=== PATIENT | female | born 2000 | race Caucasian/White ===

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

== ENCOUNTER 2020-03-10 00:02 | Emergency (ER) | payer OTHER ==
[2020-03-10 00:14] VITALS: BP 135/82; RESP 18; TEMP 99.2
[2020-03-10] MEDS ORDERED: ONDANSETRON 4 MG ODT STARTER PACK 2 TAB BTL PO STA (00:23)
[2020-03-10] MEDS ORDERED: ACETAMINOPHEN TAB 325 MG TAB PO STA (00:23)
[2020-03-10] MEDS ORDERED: IBUPROFEN 600 MG TAB PO STA (00:23)
[2020-03-10] MEDS ORDERED: LORazepam 1 MG TAB PO STA (00:23)
--- NOTE | 2020-03-10 00:24 | ED ---
Headache HPI - General Chief Complaint: Headache Stated Complaint: Headache Time Seen by Provider: 03/10/20 00:09 Mode of arrival: ambulatory Limitations: no limitations - History of Present Illness Initial Comments: 19-year-old female patient presents to the emergency department today for evaluation of headache and ringing in the right ear. The patient states that she generally gets these symptoms prior to having a seizure. States that she was diagnosed with a seizure disorder and Deirdre of last year and they are unable yet to find a cause. States she is taking Keppra as directed daily. States that symptoms started today after she got into an argument with her [id number] around 5 PM. States she took a nap at her symptoms are still present when she woke. She denies any blurred or double vision. Denies any numbness, tingling, weakness to her extremities. Denies any recent head injury. Denies nausea or vomiting. Patient denies any recent rash, fever, chills, cough, shortness of breath, chest pain, abdominal pain, diarrhea, constipation, back pain, hematuria, dysuria, urinary urgency, urinary frequency, or any other complaints. - Related Data Previous Rx's Medication Instructions Recorded Ondansetron Odt [Zofran Odt] 4 mg PO Q8HR PRN #14 tab 11/27/19 Allergies Allergy/AdvReac Type Severity Reaction Status Date / Time No Known Allergies Allergy Verified 11/27/19 11:18 Review of Systems ROS Statement: Those systems with pertinent positive or pertinent negative responses have been documented in the HPI. ROS Other: All systems not noted in ROS Statement are negative. Past Medical History Past Medical History: Asthma, GERD/Reflux, Pneumonia, Seizure Disorder Additional Past Medical History / Comment(s): "malformation of the skull", RSV, pneumonia as toddler. , Migraines, frequent UTI's, hx of seizure x1 (08/05/19), History of Any Multi-Drug Resistant Organisms: None Reported Past Surgical History: Appendectomy, Orthopedic Surgery Additional Past Surgical History / Comment(s): left foot surgery Past Anesthesia/Blood Transfusion Reactions: No Reported Reaction Past Psychological History: ADD/ADHD, Bipolar, Depression Smoking Status: Current every day smoker Past Alcohol Use History: None Reported Past Drug Use History: Marijuana - Past Family History Mother Family Medical History: No Reported History General Exam Limitations: no limitations General appearance: alert, in no apparent distress, other (Physical well- developed, well-nourished adult female patient in no acute distress. Vital signs upon presentation are temperature 99.2F, pulse 111, respirations 18, blood pressure 135/82, pulse ox 100% on room air.) Eye exam: Present: normal appearance, PERRL, EOMI. Absent: scleral icterus, conjunctival injection, periorbital swelling ENT exam: Present: normal exam, normal oropharynx, mucous membranes moist Respiratory exam: Present: normal lung sounds bilaterally. Absent: respiratory distress, wheezes, rales, rhonchi, stridor Cardiovascular Exam: Present: regular rate, normal rhythm, normal heart sounds. Absent: systolic murmur, diastolic murmur, rubs, gallop, clicks GI/Abdominal exam: Present: soft, normal bowel sounds. Absent: distended, tenderness, guarding, rebound, rigid Neurological exam: Present: alert, oriented X3, CN II-XII intact Expanded Speech: Present: fluid speech Motor strength exam: RUE: 5, LUE: 5, RLE: 5, LLE: 5 Psychiatric exam: Present: normal affect, normal mood Skin exam: Present: warm, dry, intact, normal color. Absent: rash Course Vital Signs 03/10/20 03/10/20 00:10 00:44 Temperature 99.2 F Pulse Rate 111 H 96 Respiratory 18 18 Rate Blood Pressure 135/82 O2 Sat by Pulse 100 100 Oximetry Medical Decision Making - Medical Decision Making 19-year-old female patient presented to the emergency department today reporting headache and ringing in the right ear. States he symptoms usually preceded her having a seizure. Physical examination is unremarkable. She is neurologically intact with no focal deficits. Patient does admit to being very stressed out today due to an argument with her [id number]. Vital signs within normal ranges. We did discuss receiving oral medications including Ativan and Zofran to help her symptoms. She agreed to this strategy. She'll be discharged to follow-up with her primary care physician and neurologist. Return parameters were discussed in detail. She verbalizes understanding and agrees with this plan. Disposition Clinical Impression: Headache, Acute stress reaction Disposition: HOME SELF-CARE Condition: Good Instructions (If sedation given, give patient instructions): Stress (ED), Acute Headache (ED) Additional Instructions: Follow-up through primary care physician and neurologist for further evaluation as soon as possible. Return to the emergency department immediately for any new, worsening, or concerning symptoms. Is patient prescribed a controlled substance at d/c from ED?: No Referrals: Kyrie Salter MD [Primary Care Provider] - 1-2 days Time of Disposition: 00:24
[2020-03-10 00:45] VITALS: PULSE 96
== END 2020-03-10 00:48 | disposition home or self-care (01) ==
LOC: EC 00:02
DX: F43.0 Acute stress reaction (principal); H93.11 Tinnitus, right ear; F17.200 Nicotine dependence, unspecified, uncomplicated; Z90.49 Acquired absence of other specified parts of digestive tract
CPT/HCPCS: 99283; S0119

== ENCOUNTER 2020-03-12 23:50 | Emergency (ER) | payer OTHER ==
[2020-03-13] MEDS ORDERED: ONDANSETRON 4 MG ODT STARTER PACK 2 TAB BTL PO STA (00:09)
[2020-03-13] MEDS ORDERED: ACET/COD 300 MG/30 MG STARTER PACK 6 TAB BTL PO STA (00:09)
--- NOTE | 2020-03-13 00:15 | ED ---
General Adult HPI - General Chief complaint: Urogenital Stated complaint: Lower Back Pain Time Seen by Provider: 03/13/20 00:02 Source: patient Mode of arrival: ambulatory Limitations: no limitations - History of Present Illness Initial comments: 19 year-old female patient presents to the emergency department for evaluation of right flank pain and nausea. Patient states she has had these symptoms throughout the day today. She states symptoms are similar to when she has had UTI in the past. States that she has asymptomatic bladder infections so her fi rst symptom is generally flank pain. She states she did have a 99F temperature today. Denies any vomiting. Is able to eat and drink without difficulty. Denies chance of . Patient denies any recent rash, cough, shortness of breath, chest pain, diarrhea, constipation, back pain, numbness, tingling, dizziness, weakness, headache, visual changes, or any other complaints. - Related Data Previous Rx's Medication Instructions Recorded Ondansetron Odt [Zofran Odt] 4 mg PO Q8HR PRN #14 tab 11/27/19 Allergies Allergy/AdvReac Type Severity Reaction Status Date / Time No Known Allergies Allergy Verified 11/27/19 11:18 Review of Systems ROS Statement: Those systems with pertinent positive or pertinent negative responses have been documented in the HPI. ROS Other: All systems not noted in ROS Statement are negative. Past Medical History Past Medical History: Asthma, GERD/Reflux, Pneumonia, Seizure Disorder Additional Past Medical History / Comment(s): "malformation of the skull", RSV, pneumonia as toddler. , Migraines, frequent UTI's, hx of seizure x1 (08/05/19), History of Any Multi-Drug Resistant Organisms: None Reported Past Surgical History: Appendectomy, Orthopedic Surgery Additional Past Surgical History / Comment(s): left foot surgery Past Anesthesia/Blood Transfusion Reactions: No Reported Reaction Past Psychological History: ADD/ADHD, Bipolar, Depression Smoking Status: Current every day smoker Past Alcohol Use History: None Reported Past Drug Use History: Marijuana - Past Family History Mother Family Medical History: No Reported History General Exam Limitations: no limitations General appearance: alert, in no apparent distress, other (This is a well- developed, well-nourished adult female patient in no acute distress. Vital signs upon presentation are temperature 98.3F, pulse 84, respirations 16, blood pressure 111/81, pulse ox 97% on room air.) Eye exam: Present: normal appearance, PERRL, EOMI. Absent: scleral icterus, conjunctival injection, periorbital swelling ENT exam: Present: normal exam, normal oropharynx, mucous membranes moist Respiratory exam: Present: normal lung sounds bilaterally. Absent: respiratory distress, wheezes, rales, rhonchi, stridor Cardiovascular Exam: Present: regular rate, normal rhythm, normal heart sounds. Absent: systolic murmur, diastolic murmur, rubs, gallop, clicks GI/Abdominal exam: Present: soft, normal bowel sounds. Absent: distended, tenderness, guarding, rebound, rigid Back exam: Present: normal inspection, CVA tenderness (R). Absent: CVA tenderness (L) Neurological exam: Present: alert, oriented X3, CN II-XII intact Psychiatric exam: Present: normal affect, normal mood Skin exam: Present: warm, dry, intact, normal color. Absent: rash Course Vital Signs 03/12/20 23:53 Temperature 98.3 F Pulse Rate 84 Respiratory 16 Rate Blood Pressure 111/81 O2 Sat by Pulse 97 Oximetry Medical Decision Making - Medical Decision Making 19-year-old female patient presents to the emergency department today concerned for possible urinary tract infection. Patient is reporting right flank pain and pressure as well as mild nausea. Physical examination did reveal right CVA tenderness. No abdominal tenderness. Urinalysis was obtained and did show small amount of blood but no elevation and red blood cells, negative for signs of infection. She is afebrile normal vital signs. Upon reevaluation she is resting comfortably in bed. I did offer to perform further testing including labs and computed tomography scan for possible kidney stone or other etiologies. Patient would like to wait and follow up with her primary care physician. She is instructed to follow-up for recheck tomorrow if possible. Return parameters were discussed in detail. She verbalizes understanding and agrees with this plan. - Lab Data Lab Results 03/13/20 03/13/20 Range/Units 00:20 00:20 Urine Color Yellow Urine Appearance Clear (Clear) Urine pH 8.0 (5.0-8.0) Ur Specific [place] 1.022 (1.001-1.035) Urine Protein Negative (Negative) Urine Glucose (UA) Negative (Negative) Urine Ketones Negative (Negative) Urine Blood Small H (Negative) Urine Nitrite Negative (Negative) Urine Bilirubin Negative (Negative) Urine Urobilinogen <2.0 (<2.0) mg/dL Ur Leukocyte Esterase Negative (Negative) Urine RBC <1 (0-5) /hpf Ur Squamous Epith Cells <1 (0-4) /hpf Urine HCG, Qual Not Detected (Not Detectd) Disposition Clinical Impression: Right flank pain Disposition: HOME SELF-CARE Condition: Good Instructions (If sedation given, give patient instructions): Flank Pain (ED) Additional Instructions: Follow-up through primary care physician for recheck in 1-2 days. Return to the emergency department for any new, worsening, or concerning symptoms. Is patient prescribed a controlled substance at d/c from ED?: No Referrals: Kyrie Salter MD [Primary Care Provider] - 1-2 days Time of Disposition: 00:54
[2020-03-13 00:40] LABS: Appearance,Urine Clear (Clear); Bilirubin,Urine Negative (Negative); Blood,Urine Small (Negative); Color,Urine Yellow; Glucose,Urine (UA) Negative (Negative); Ketones,Urine Negative (Negative); Leukocyte Esterase,Urine Negative (Negative); Nitrite,Urine Negative (Negative); Protein,Urine Negative (Negative); RBC,Urine <1 /hpf (0-5); Specific Gravity,Urine 1.022 (1.001-1.035); Squamous Epithelial Cell,Urine <1 /hpf (0-4); Urobilinogen,Urine <2.0 mg/dL (<2.0)
[2020-03-13 01:11] VITALS: BP 116/87; PULSE 79; RESP 18; TEMP 97.9
== END 2020-03-13 01:08 | disposition home or self-care (01) ==
LOC: EC 23:50
DX: R10.9 Unspecified abdominal pain (principal); R11.0 Nausea; F17.200 Nicotine dependence, unspecified, uncomplicated; Z90.89 Acquired absence of other organs; Z87.440 Personal history of urinary (tract) infections
CPT/HCPCS: 81001; 81025; 99283; S0119

== ENCOUNTER 2020-06-09 07:00 | Emergency (ER) | payer BC, OTHER ==
[2020-06-09 07:11] VITALS: BP 123/78; PULSE 95; RESP 18; TEMP 97.5
[2020-06-09] MEDS ORDERED: SODIUM CHLORIDE 0.9% 2,000 ML IV STA (07:36)
[2020-06-09] MEDS ORDERED: METOCLOPRAMIDE 5 MG/ML 2 ML VIAL IVP STA (07:36)
[2020-06-09] MEDS ORDERED: diphenhydrAMINE 50 MG/ML 1 ML VIAL IVP STA (07:36)
--- NOTE | 2020-06-09 07:50 | ED ---
General Adult HPI - General Chief complaint: Nausea/Vomiting/Diarrhea Stated complaint: Vomiting Time Seen by Provider: 06/09/20 07:31 Source: patient, RN notes reviewed Mode of arrival: ambulatory Limitations: no limitations - History of Present Illness Initial comments: 19-year-old female presents to the emergency room for nausea and vomiting. Patient is currently 6 weeks . Patient states that over the past several days she has been nauseous and not able to keep much down. She is concerned she is dehydrated. Patient denies abdominal pain or vaginal bleeding. Patient does have an upcoming appointment with OBGYN scheduled. Patient has no other complaints at this time including shortness of breath, chest pain, abdominal pain, headache, or visual changes. - Related Data Home Medications Medication Instructions Recorded Confirmed Pnv,Calcium 72/Iron/Folic Acid 1 tab PO DAILY 06/09/20 06/09/20 [ Plus Tablet] Previous Rx's Medication Instructions Recorded Doxylamine/Pyridoxine HCl (B6) 2 each PO HS #30 tablet. 06/09/20 [Nasima Ortega 10-10 mg Tablet] Allergies Allergy/AdvReac Type Severity Reaction Status Date / Time No Known Allergies Allergy Verified 06/09/20 08:14 Review of Systems ROS Statement: Those systems with pertinent positive or pertinent negative responses have been documented in the HPI. ROS Other: All systems not noted in ROS Statement are negative. Past Medical History Past Medical History: Asthma, GERD/Reflux, Pneumonia, Seizure Disorder Additional Past Medical History / Comment(s): "malformation of the skull", RSV, pneumonia as toddler. , Migraines, frequent UTI's, hx of seizure x1 (08/05/19), History of Any Multi-Drug Resistant Organisms: None Reported Past Surgical History: Appendectomy, Orthopedic Surgery Additional Past Surgical History / Comment(s): left foot surgery Past Anesthesia/Blood Transfusion Reactions: No Reported Reaction Past Psychological History: ADD/ADHD, Bipolar, Depression Smoking Status: Current every day smoker Past Alcohol Use History: None Reported Past Drug Use History: Marijuana - Past Family History Mother Family Medical History: No Reported History General Exam Limitations: no limitations General appearance: alert, in no apparent distress Head exam: Present: atraumatic, normocephalic, normal inspection Eye exam: Present: normal appearance, PERRL, EOMI. Absent: scleral icterus, conjunctival injection, periorbital swelling ENT exam: Present: normal exam, mucous membranes moist Neck exam: Present: normal inspection. Absent: tenderness, meningismus, lymphadenopathy Respiratory exam: Present: normal lung sounds bilaterally. Absent: respiratory distress, wheezes, rales, rhonchi, stridor Cardiovascular Exam: Present: regular rate, normal rhythm, normal heart sounds. Absent: systolic murmur, diastolic murmur, rubs, gallop, clicks GI/Abdominal exam: Present: soft, normal bowel sounds. Absent: distended, tenderness, guarding, rebound, rigid Neurological exam: Present: alert Course Vital Signs 06/09/20 07:08 Temperature 97.5 F L Pulse Rate 95 Respiratory 18 Rate Blood Pressure 123/78 O2 Sat by Pulse 100 Oximetry Medical Decision Making - Medical Decision Making Vitals are stable. Patient is well-appearing. CBC CMP unremarkable. As unremarkable. HCG is detected. Patient was given 2 L of fluids and antiemetics. Feels much better at this time. We will start patient on Diclegis. She'll return here for any worsening symptoms. - Lab Data Result diagrams: 06/09/20 07:57 06/09/20 07:57 Lab Results 06/09/20 06/09/20 06/09/20 Range/Units 07:48 07:48 07:57 WBC 8.4 (4.0-11.0) k/uL RBC 4.65 (3.80-5.40) m/uL Hgb 14.9 (11.4-16.0) gm/dL Hct 45.5 (34.0-46.0) % MCV 97.8 (80.0-100.0) fL MCH 32.0 (25.0-35.0) pg MCHC 32.7 (31.0-37.0) g/dL RDW 12.7 (11.5-15.5) % Plt Count 270 (150-450) k/uL MPV 7.7 Neutrophils % 76 % Lymphocytes % 20 % Monocytes % 3 % Eosinophils % 1 % Basophils % 0 % Neutrophils # 6.4 (1.3-7.7) k/uL Lymphocytes # 1.7 (1.0-4.8) k/uL Monocytes # 0.2 (0-1.0) k/uL Eosinophils # 0.1 (0-0.7) k/uL Basophils # 0.0 (0-0.2) k/uL Sodium (137-145) mmol/L Potassium (3.5-5.1) mmol/L Chloride (98-107) mmol/L Carbon Dioxide (22-30) mmol/L Anion Gap mmol/L BUN (7-17) mg/dL Creatinine (0.52-1.04) mg/dL Est GFR (CKD-EPI)AfAm (>60 ml/min/1.73 sqM) Est GFR (CKD-EPI)NonAf (>60 ml/min/1.73 sqM) Glucose (74-99) mg/dL Calcium (8.4-10.2) mg/dL Total Bilirubin (0.2-1.3) mg/dL AST (14-36) U/L ALT (4-34) U/L Alkaline Phosphatase (38-126) U/L Total Protein (6.3-8.2) g/dL Albumin (3.5-5.0) g/dL Lipase (23-300) U/L Urine Color Yellow Urine Appearance Clear (Clear) Urine pH 6.5 (5.0-8.0) Ur Specific [place] 1.032 (1.001-1.035) Urine Protein Trace H (Negative) Urine Glucose (UA) Negative (Negative) Urine Ketones Negative (Negative) Urine Blood Negative (Negative) Urine Nitrite Negative (Negative) Urine Bilirubin Negative (Negative) Urine Urobilinogen 2.0 (<2.0) mg/dL Ur Leukocyte Esterase Negative (Negative) Urine HCG, Qual Detected (Not Detectd) 06/09/20 Range/Units 07:57 WBC (4.0-11.0) k/uL RBC (3.80-5.40) m/uL Hgb (11.4-16.0) gm/dL Hct (34.0-46.0) % MCV (80.0-100.0) fL MCH (25.0-35.0) pg MCHC (31.0-37.0) g/dL RDW (11.5-15.5) % Plt Count (150-450) k/uL MPV Neutrophils % % Lymphocytes % % Monocytes % % Eosinophils % % Basophils % % Neutrophils # (1.3-7.7) k/uL Lymphocytes # (1.0-4.8) k/uL Monocytes # (0-1.0) k/uL Eosinophils # (0-0.7) k/uL Basophils # (0-0.2) k/uL Sodium 137 (137-145) mmol/L Potassium 3.9 (3.5-5.1) mmol/L Chloride 105 (98-107) mmol/L Carbon Dioxide 26 (22-30) mmol/L Anion Gap 6 mmol/L BUN 10 (7-17) mg/dL Creatinine 0.70 (0.52-1.04) mg/dL Est GFR (CKD-EPI)AfAm >90 (>60 ml/min/1.73 sqM) Est GFR (CKD-EPI)NonAf >90 (>60 ml/min/1.73 sqM) Glucose 90 (74-99) mg/dL Calcium 9.0 (8.4-10.2) mg/dL Total Bilirubin 1.0 (0.2-1.3) mg/dL AST 18 (14-36) U/L ALT 13 (4-34) U/L Alkaline Phosphatase 71 (38-126) U/L Total Protein 6.7 (6.3-8.2) g/dL Albumin 4.0 (3.5-5.0) g/dL Lipase 60 (23-300) U/L Urine Color Urine Appearance (Clear) Urine pH (5.0-8.0) Ur Specific [place] (1.001-1.035) Urine Protein (Negative) Urine Glucose (UA) (Negative) Urine Ketones (Negative) Urine Blood (Negative) Urine Nitrite (Negative) Urine Bilirubin (Negative) Urine Urobilinogen (<2.0) mg/dL Ur Leukocyte Esterase (Negative) Urine HCG, Qual (Not Detectd) Disposition Clinical Impression: Nausea/vomiting in Disposition: HOME SELF-CARE Condition: Good Instructions (If sedation given, give patient instructions): Nausea and Vomiting in (ED) Additional Instructions: Please take medication as directed. Please follow-up with primary care and [facility]. Return to the emergency room for any worsening symptoms. Prescriptions: Doxylamine/Pyridoxine HCl (B6) [Nasima Ortega 10-10 mg Tablet] 2 each PO HS #30 tablet.dr Is patient prescribed a controlled substance at d/c from ED?: No Referrals: Kyrie Salter MD [Primary Care Provider] - 1-2 days Time of Disposition: 08:49
[2020-06-09 08:11] LABS: Basophils % (A) 0 %; Eosinophils # (A) 0.1 k/uL (0-0.7); Eosinophils % (A) 1 %; HCT 45.5 % (34.0-46.0); HGB 14.9 gm/dL (11.4-16.0); Lymphocytes # (A) 1.7 k/uL (1.0-4.8); Lymphocytes % (A) 20 %; MCHC 32.7 g/dL (31.0-37.0); MCV 97.8 fL (80.0-100.0); Mean Platelet Volume 7.7; Monocytes # (A) 0.2 k/uL (0-1.0); Monocytes % (A) 3 %; Neutrophils # (A) 6.4 k/uL (1.3-7.7); Neutrophils % (A) 76 %; Platelet Count 270 k/uL (150-450); RBC 4.65 m/uL (3.80-5.40); RDW 12.7 % (11.5-15.5); WBC 8.4 k/uL (4.0-11.0)
[2020-06-09 08:15] LABS: Appearance,Urine Clear (Clear); Bilirubin,Urine Negative (Negative); Blood,Urine Negative (Negative); Color,Urine Yellow; Glucose,Urine (UA) Negative (Negative); Ketones,Urine Negative (Negative); Leukocyte Esterase,Urine Negative (Negative); Nitrite,Urine Negative (Negative); PH, Urine 6.5 (5.0-8.0); Protein,Urine Trace (Negative); Specific Gravity,Urine 1.032 (1.001-1.035)
[2020-06-09 08:29] LABS: ALT 13 U/L (4-34); AST 18 U/L (14-36); African American GFR (CKD) >90 (>60 ml/min/1.73 sqM); Alkaline Phosphatase 71 U/L (38-126); Anion Gap 6 mmol/L; Blood Urea Nitrogen 10 mg/dL (7-17); Carbon Dioxide 26 mmol/L (22-30); Chloride 105 mmol/L (98-107); Glucose 90 mg/dL (74-99); Lipase 60 U/L (23-300); Non-African American GFR(CKD) >90 (>60 ml/min/1.73 sqM); Potassium 3.9 mmol/L (3.5-5.1); Sodium 137 mmol/L (137-145); Total Protein 6.7 g/dL (6.3-8.2)
== END 2020-06-09 09:38 | disposition home or self-care (01) ==
LOC: EC 07:00
DX: O21.9 Vomiting of pregnancy, unspecified (principal); O99.511 Diseases of the respiratory system complicating pregnancy, first trimester; J45.909 Unspecified asthma, uncomplicated; O99.331 Smoking (tobacco) complicating pregnancy, first trimester; F17.200 Nicotine dependence, unspecified, uncomplicated; Z3A.01 Less than 8 weeks gestation of pregnancy
CPT/HCPCS: 36415; 80053; 83690; 85025; 81003; 81025; 99284; 96374; 96375; J1200; J2765

== ENCOUNTER 2020-11-15 00:36 | Emergency (ER) | payer BC, OTHER ==
[2020-11-15] MEDS ORDERED: LIDOCAINE 1% INJ 10MG/ML (20 ML MDV) SQ ONE (02:05)
--- NOTE | 2020-11-15 02:43 | ED ---
Wound/Laceration HPI - General Chief Complaint: Wound/Laceration Stated Complaint: Finger Laceration Time Seen by Provider: 11/15/20 01:55 Source: patient Mode of arrival: ambulatory Limitations: no limitations - History of Present Illness Initial Comments: 20-year-old female presents emergency Department with the chief complaint laceration. Status occurred about one hour prior to arrival. Patient reports she accidentally lacerated the palmar aspect of the left second digit. She reports some bleeding which is hence mostly resolved. However, she states the knife was not clean. States her tetanus is up-to-date. Denies any numbness or tingling. Denies any weakness to the rest of the finger. - Related Data Home Medications Medication Instructions Recorded Confirmed Pnv,Calcium 72/Iron/Folic Acid 1 tab PO DAILY 06/09/20 06/09/20 [ Plus Tablet] Previous Rx's Medication Instructions Recorded Doxylamine/Pyridoxine HCl (B6) 2 each PO HS #30 tablet. 06/09/20 [Nasima Ortega 10-10 mg Tablet] Cephalexin [Keflex] 500 mg PO TID #21 cap 11/15/20 Allergies Allergy/AdvReac Type Severity Reaction Status Date / Time No Known Allergies Allergy Verified 11/15/20 01:39 Review of Systems ROS Statement: Those systems with pertinent positive or pertinent negative responses have been documented in the HPI. ROS Other: All systems not noted in ROS Statement are negative. Past Medical History Past Medical History: Asthma, GERD/Reflux, Pneumonia, Seizure Disorder Additional Past Medical History / Comment(s): "malformation of the skull", RSV, pneumonia as toddler. , Migraines, frequent UTI's, hx of seizure x1 (08/05/19), History of Any Multi-Drug Resistant Organisms: None Reported Past Surgical History: Appendectomy, Orthopedic Surgery Additional Past Surgical History / Comment(s): left foot surgery Past Anesthesia/Blood Transfusion Reactions: No Reported Reaction Past Psychological History: ADD/ADHD, Bipolar, Depression Smoking Status: Current every day smoker Past Alcohol Use History: None Reported Past Drug Use History: Marijuana - Past Family History Mother Family Medical History: No Reported History General Exam Limitations: no limitations General appearance: alert, in no apparent distress Head exam: Present: atraumatic, normocephalic, normal inspection Eye exam: Present: normal appearance, PERRL, EOMI Pupils: Present: normal accommodation ENT exam: Present: normal exam, normal oropharynx, mucous membranes moist Neck exam: Present: normal inspection, full ROM. Absent: tenderness Respiratory exam: Present: normal lung sounds bilaterally. Absent: respiratory distress Cardiovascular Exam: Present: regular rate, normal rhythm, normal heart sounds. Absent: systolic murmur Extremities exam: Present: full ROM, tenderness (Mild tenderness at the lace ration site), normal capillary refill, other (Palpable ulnar and radial pulses bilateral. Sensation intact in the left hand). Absent: normal inspection (Flap-like 2 cm laceration to the palmar aspect of the left second digit), pedal edema, joint swelling, calf tenderness Back exam: Present: normal inspection, full ROM. Absent: tenderness Neurological exam: Present: alert, oriented X3 Psychiatric exam: Present: normal affect, normal mood Skin exam: Present: warm, dry, intact, normal color Course Vital Signs 11/15/20 11/15/20 01:37 03:23 Temperature 98.1 F 98.3 F Pulse Rate 62 74 Respiratory 20 18 Rate Blood Pressure 114/67 115/70 O2 Sat by Pulse 100 100 Oximetry Procedures - Laceration Laceration #1 Consent Obtained: verbal consent Indication: laceration Site: hand Size (cm): 2 Description: flap, clean Depth: simple, single layer Sedation/Analgesia: none Anesthetic Used: lidocaine 1% Anesthesia Technique: local infiltration Amount (mls): 3 Pre-repair: irrigated extensively, deep structures intact Type of Sutures: nylon Size of Sutures: 4-0 Number of Sutures: 3 Technique: simple, interrupted Patient Tolerated Procedure: well, no complications Medical Decision Making - Medical Decision Making 20-year-old female presents emergency Department with a chief complaint laceration. On Physical examination, she has a laceration the palmar aspect of the left second digit. Laceration site was thoroughly irrigated and repaired with 3 sutures. Patient started procedure well. Her tetanus is already up-to- date. However, considering this was a dirty knife, I will send the patient home prophylactically with Keflex. Return parameters were thoroughly discussed the patient's attending agreeable. Disposition Clinical Impression: Laceration Disposition: HOME SELF-CARE Condition: Stable Instructions (If sedation given, give patient instructions): Care For Your Stitches (DC), Laceration (DC) Additional Instructions: Please return to the emergency room in 8-10 days to have sutures removed. Please watch for any signs of infection which may include increased pain, swelling, redness, fever or chills. Please return to emergency room for any signs of infection do occur. Please use clean soap and water over the area to prevent scabbing over your stitches. Please leave wound covered for the first 24-48 hours and then leave wound open to air. Please return to the emergency room for any other concerns. Prescriptions: Cephalexin [Keflex] 500 mg PO TID #21 cap Is patient prescribed a controlled substance at d/c from ED?: No Referrals: Kyrie Salter MD [Primary Care Provider] - 1-2 days Time of Disposition: 02:43
[2020-11-15 05:16] VITALS: BP 115/70; PULSE 74; RESP 18; TEMP 98.3
== END 2020-11-15 03:23 | disposition home or self-care (01) ==
LOC: EC 00:36
DX: S61.412A Laceration without foreign body of left hand, initial encounter (principal); J45.909 Unspecified asthma, uncomplicated; K21.9 Gastro-esophageal reflux disease without esophagitis; G40.909 Epilepsy, unspecified, not intractable, without status epilepticus; G43.909 Migraine, unspecified, not intractable, without status migrainosus; F31.9 Bipolar disorder, unspecified; F90.9 Attention-deficit hyperactivity disorder, unspecified type; F17.200 Nicotine dependence, unspecified, uncomplicated; F12.90 Cannabis use, unspecified, uncomplicated; W26.0XXA Contact with knife, initial encounter
CPT/HCPCS: 99282; 12001; J2001

== ENCOUNTER 2020-11-20 15:15 | Outpatient (CLI) | payer OTHER ==
[2020-11-20 15:38] VITALS: BP 127/80; PULSE 92; RESP 16; TEMP 97
[2020-11-20] MEDS ORDERED: SODIUM CHLORIDE 0.9% 1,000 ML IV ONE (15:54)
[2020-11-20 16:05] LABS: Amorphous Sediment,Urine Few /hpf; Appearance,Urine Cloudy (Clear); Bacteria,Urine Occasional /hpf; Bilirubin,Urine Negative (Negative); Blood,Urine Negative (Negative); Color,Urine Yellow; Glucose,Urine (UA) Negative (Negative); Ketones,Urine 3+ (Negative); Leukocyte Esterase,Urine Small (Negative); Mucus,Urine Occasional /hpf; Nitrite,Urine Negative (Negative); Protein,Urine Trace (Negative); RBC,Urine 1 /hpf (0-5); Squamous Epithelial Cell,Urine 12 /hpf (0-4); Urobilinogen,Urine <2.0 mg/dL (<2.0); WBC,Urine 6 /hpf (0-5)
[2020-11-20 16:25] LABS: Basophils % (A) 0 %; Eosinophils # (A) 0.1 k/uL (0-0.7); Eosinophils % (A) 1 %; HCT 40.8 % (34.0-46.0); HGB 15.1 gm/dL (11.4-16.0); Hyperchromasia Slight; Lymphocytes # (A) 1.3 k/uL (1.0-4.8); Lymphocytes % (A) 16 %; MCH 35.4 pg (25.0-35.0); MCHC 37.1 g/dL (31.0-37.0); MCV 95.3 fL (80.0-100.0); Mean Platelet Volume 8.7; Monocytes # (A) 0.1 k/uL (0-1.0); Monocytes % (A) 2 %; Neutrophils # (A) 6.8 k/uL (1.3-7.7); Neutrophils % (A) 81 %; Platelet Count 250 k/uL (150-450); RBC 4.28 m/uL (3.80-5.40); RDW 12.3 % (11.5-15.5); WBC 8.5 k/uL (4.0-11.0)
[2020-11-20] MEDS ORDERED: ONDANSETRON 4 MG/2 ML VIAL IVP STA (16:35)
--- NOTE | 2020-12-15 07:54 | P.MSEPDOC ---
Presenting Problems - Arrival Data Date of Arrival on Unit: 11/20/20 Time of Arrival on Unit: 15:15 Mode of Transport: Ambulatory - Complaint OB-Reason for Admission/Chief Complaint: Acute Nausea/Vomiting, Pain Comment: patient presents to triage with NVD starting on monday and states she has R side abd pain that started night rating 4/10 pain score Medical History - Information : 1 Para: 0 Term: 0 : 0 Abortions: Spontaneous or Elective: 0 Number of Living Children: 0 - Gestational Age Gestational Age by SALVATORE (wks/days): 29 Weeks and 1 Days Review of Systems - Review of Systems Constitutional: No problems Breast: No problems ENT: No problems Cardiovascular: No problems Respiratory: No problems Gastrointestinal: No problems Genitourinary: No problems Musculoskeletal: No problems Neurological: No problems Skin: No problems Vital Signs - Temperature Temperature: 97.0 F Temperature Source: Temporal Artery Scan - Pulse Pulse Oximetery Pulse Rate: 92 Pulse Assessment Method: Pulse Oximetry - Respirations Respiratory Rate: 16 Oxygen Delivery Method: Room Air O2 Sat by Pulse Oximetry: 100 - Blood Pressure Right Arm Blood Pressure: 127/80 Blood Pressure Mean: 95 Blood Pressure Source: Automatic Cuff Medical Screen Scoring - Assessment - Baby A Baseline FHR: 150 Heart Rate - NICHD Category: Category I (Normal) NST: Reactive Physician Notification - Physician Notified Physician Notified Date: 11/20/20 Physician Notified Time: 16:35 Physician: Carolynn Marrufo New Order Received: Yes - Notification Comment Comment: Dr notified of NVD and R side abd pain. new orders for CBC, U/A and covid swab. hydrate patient with bolus of 1L of 0.[address] back with results. called dr with lab results and patient status after bolus with one episode of vomiting small amount of clear fluid. new order for 4mg of zofran and patient to be off work until monday and call office to f/u on monday. Maternal Triage Index - Non-Urgent/Priority 4 Non-Urgent Priority 4: Yes Criteria Met for Priority 4: NVD since monday. Disposition - Disposition OB Disposition: Discharge to home Discharge Date: 11/20/20 Discharge Time: 16:55 I agree with the RN Medical Screening Exam: Yes Case reviewed; plan agreed upon as documented in EMR&OBIX.: Yes Diagnosis: nausea and vomitting
== END 2020-11-20 16:55 ==
LOC: FBPOP 15:15
PROVIDERS: ATTEND Obstetrics & Gynecology
DX: O21.2 Late vomiting of pregnancy (principal); O99.333 Smoking (tobacco) complicating pregnancy, third trimester; F17.200 Nicotine dependence, unspecified, uncomplicated; Z3A.29 29 weeks gestation of pregnancy
CPT/HCPCS: 59025; 96361; 96374; 85025; 81001; 87635; G0463; J2405; 99214

== ENCOUNTER 2020-12-09 15:30 | Emergency (ER) | payer OTHER ==
[2020-12-09 15:52] VITALS: BP 110/71; PULSE 82; RESP 19; TEMP 98
[2020-12-09] MEDS ORDERED: SODIUM CHLORIDE 0.9% 1,000 ML IV ONE (16:10)
--- NOTE | 2020-12-09 16:16 | ED ---
General Adult HPI - General Chief complaint: Nausea/Vomiting/Diarrhea Stated complaint: Possible dehydration,31 Wks preg Time Seen by Provider: 12/09/20 16:00 Source: patient, RN notes reviewed Mode of arrival: ambulatory Limitations: no limitations - History of Present Illness Initial comments: 20-year-old female, , presents to the emergency Department with complaints of nausea, onset yesterday (Monday) evening. Patient reports poor oral intake today, and a couple episodes of frothy emesis. Patient states she is 32 weeks and saw her OB on Monday at which time she was feeling fine. States she did contact her provider this morning who suggested she come to the ER for IV hydration. Patient denies fever, chills, chest pain, cough, shortness of breath, abdominal pain, cramping, vaginal bleeding, discharge, or leaking of fluids, constipation, diarrhea, dysuria, and hematuria. - Related Data Home Medications Medication Instructions Recorded Confirmed Pnv,Calcium 72/Iron/Folic Acid 1 tab PO HS 06/09/20 12/09/20 [ Plus Tablet] Allergies Allergy/AdvReac Type Severity Reaction Status Date / Time No Known Allergies Allergy Verified 12/09/20 18:00 Review of Systems ROS Statement: Those systems with pertinent positive or pertinent negative responses have been documented in the HPI. ROS Other: All systems not noted in ROS Statement are negative. Past Medical History Past Medical History: Asthma, GERD/Reflux, Pneumonia, Seizure Disorder Additional Past Medical History / Comment(s): "malformation of the skull", RSV, pneumonia as toddler. , Migraines, frequent UTI's, hx of seizure x1 (08/05/19), History of Any Multi-Drug Resistant Organisms: None Reported Past Surgical History: Appendectomy, Orthopedic Surgery Additional Past Surgical History / Comment(s): left foot surgery Past Anesthesia/Blood Transfusion Reactions: No Reported Reaction Past Psychological History: ADD/ADHD, Bipolar, Depression Smoking Status: Current every day smoker - Past Family History Mother Family Medical History: No Reported History General Exam Limitations: no limitations (Well-developed, well-nourished female in no acute distress. Initial temperature 98.0, pulse 82, respirations 19, blood pressure 110/71, pulse ox 99% on room air.) General appearance: alert, in no apparent distress ENT exam: Present: normal exam, normal oropharynx Respiratory exam: Present: normal lung sounds bilaterally. Absent: respiratory distress, wheezes, rales, rhonchi, stridor Cardiovascular Exam: Present: regular rate, normal rhythm, normal heart sounds. Absent: systolic murmur, diastolic murmur, rubs, gallop, clicks GI/Abdominal exam: Present: soft, normal bowel sounds. Absent: distended, tenderness, guarding, rebound, rigid Left Lower Leg exam: Present: normal inspection. Absent: swelling Neurovascular tendon exam: Present: no vascular compromise. Absent: pulse deficit, abnormal cap refill Right Lower Leg exam: Present: normal inspection. Absent: swelling Neurovascular tendon exam: Present: no vascular compromise Back exam: Present: normal inspection. Absent: CVA tenderness (R), CVA tenderness (L) Neurological exam: Present: alert, oriented X3, CN II-XII intact Psychiatric exam: Present: normal affect, normal mood Skin exam: Present: warm, dry, intact, normal color. Absent: rash Course Vital Signs 12/09/20 15:50 Temperature 98.0 F Pulse Rate 82 Respiratory 19 Rate Blood Pressure 110/71 O2 Sat by Pulse 99 Oximetry - Reevaluation(s) Reevaluation #1: 12/09/20 17:40 patient able to tolerate apple juice without nausea. She is feeling much improved and ready for discharge. Medical Decision Making - Medical Decision Making 20-year-old female, 31 weeks , , is evaluated for nausea, vomiting, and decreased oral intake 24 hours. Patient is established with an OB provider and is undergoing routine care. She is well-appearing with no episodes of vomiting while present in the emergency department. Upon physical exam, movement is palpable. heart tones were obtained with a variable rate of 135-155. Patient was hydrated with 1 L of IV fluids for mild dehydration and 2+ketonuria. Patient feeling improved and able to tolerate apple juice and crackers. Patient will be discharged home with instructions to follow-up with her OB provider. Return parameters were discussed in detail. Patient verbalizes understanding and agrees with this plan. The patient's care was discussed my attending Dr. Estes. - Lab Data Result diagrams: 12/09/20 16:22 12/09/20 16:22 Lab Results 12/09/20 12/09/20 12/09/20 Range/Units 16:22 16:22 16:47 WBC 9.5 (4.0-11.0) k/uL RBC 3.95 (3.80-5.40) m/uL Hgb 13.5 (11.4-16.0) gm/dL Hct 38.0 (34.0-46.0) % MCV 96.2 (80.0-100.0) fL MCH 34.3 (25.0-35.0) pg MCHC 35.6 (31.0-37.0) g/dL RDW 12.7 (11.5-15.5) % Plt Count 224 (150-450) k/uL MPV 8.8 Neutrophils % 82 % Lymphocytes % 14 % Monocytes % 2 % Eosinophils % 1 % Basophils % 0 % Neutrophils # 7.8 H (1.3-7.7) k/uL Lymphocytes # 1.4 (1.0-4.8) k/uL Monocytes # 0.2 (0-1.0) k/uL Eosinophils # 0.1 (0-0.7) k/uL Basophils # 0.0 (0-0.2) k/uL Hyperchromasia Slight Sodium 133 L (137-145) mmol/L Potassium 3.9 (3.5-5.1) mmol/L Chloride 105 (98-107) mmol/L Carbon Dioxide 21 L (22-30) mmol/L Anion Gap 7 mmol/L BUN 7 (7-17) mg/dL Creatinine 0.43 L (0.52-1.04) mg/dL Est GFR (CKD-EPI)AfAm >90 (>60 ml/min/1.73 sqM) Est GFR (CKD-EPI)NonAf >90 (>60 ml/min/1.73 sqM) Glucose 86 (74-99) mg/dL Calcium 8.6 (8.4-10.2) mg/dL Urine Color Yellow Urine Appearance Cloudy H (Clear) Urine pH 7.5 (5.0-8.0) Ur Specific [place] 1.019 (1.001-1.035) Urine Protein Trace H (Negative) Urine Glucose (UA) Negative (Negative) Urine Ketones 2+ H (Negative) Urine Blood Negative (Negative) Urine Nitrite Negative (Negative) Urine Bilirubin Negative (Negative) Urine Urobilinogen <2.0 (<2.0) mg/dL Ur Leukocyte Esterase Small H (Negative) Urine RBC <1 (0-5) /hpf Urine WBC 4 (0-5) /hpf Ur Squamous Epith Cells 10 H (0-4) /hpf Urine Bacteria Rare H (None) /hpf Urine Mucus Rare H (None) /hpf Disposition Clinical Impression: Nausea/vomiting in Disposition: HOME SELF-CARE Instructions (If sedation given, give patient instructions): Nausea and Vomiting in (ED) Additional Instructions: Eat small, frequent meals. Increase intake of water. Call your OB doctor tomorrow morning to schedule follow-up appointment. Return to the emergency department with any new, worsening, or concerning symptoms as discussed. Is patient prescribed a controlled substance at d/c from ED?: No Referrals: Kyrie Salter MD [Primary Care Provider] - 1-2 days Dewayne Duron MD [STAFF PHYSICIAN] - 1-2 days Time of Disposition: 17:54
[2020-12-09 16:32] LABS: Basophils % (A) 0 %; Eosinophils # (A) 0.1 k/uL (0-0.7); Eosinophils % (A) 1 %; HGB 13.5 gm/dL (11.4-16.0); Hyperchromasia Slight; Lymphocytes # (A) 1.4 k/uL (1.0-4.8); Lymphocytes % (A) 14 %; MCH 34.3 pg (25.0-35.0); MCHC 35.6 g/dL (31.0-37.0); MCV 96.2 fL (80.0-100.0); Mean Platelet Volume 8.8; Monocytes # (A) 0.2 k/uL (0-1.0); Monocytes % (A) 2 %; Neutrophils # (A) 7.8 k/uL (1.3-7.7); Neutrophils % (A) 82 %; Platelet Count 224 k/uL (150-450); RBC 3.95 m/uL (3.80-5.40); RDW 12.7 % (11.5-15.5); WBC 9.5 k/uL (4.0-11.0)
[2020-12-09 16:45] LABS: African American GFR (CKD) >90 (>60 ml/min/1.73 sqM); Anion Gap 7 mmol/L; Blood Urea Nitrogen 7 mg/dL (7-17); Calcium 8.6 mg/dL (8.4-10.2); Carbon Dioxide 21 mmol/L (22-30); Chloride 105 mmol/L (98-107); Glucose 86 mg/dL (74-99); Non-African American GFR(CKD) >90 (>60 ml/min/1.73 sqM); Potassium 3.9 mmol/L (3.5-5.1); Sodium 133 mmol/L (137-145)
[2020-12-09 16:58] LABS: Appearance,Urine Cloudy (Clear); Bacteria,Urine Rare /hpf; Bilirubin,Urine Negative (Negative); Blood,Urine Negative (Negative); Color,Urine Yellow; Glucose,Urine (UA) Negative (Negative); Ketones,Urine 2+ (Negative); Leukocyte Esterase,Urine Small (Negative); Mucus,Urine Rare /hpf; Nitrite,Urine Negative (Negative); PH, Urine 7.5 (5.0-8.0); Protein,Urine Trace (Negative); RBC,Urine <1 /hpf (0-5); Specific Gravity,Urine 1.019 (1.001-1.035); Squamous Epithelial Cell,Urine 10 /hpf (0-4); Urobilinogen,Urine <2.0 mg/dL (<2.0); WBC,Urine 4 /hpf (0-5)
== END 2020-12-09 18:14 | disposition home or self-care (01) ==
LOC: EC 15:30
DX: O21.2 Late vomiting of pregnancy (principal); O99.513 Diseases of the respiratory system complicating pregnancy, third trimester; O99.613 Diseases of the digestive system complicating pregnancy, third trimester; J45.909 Unspecified asthma, uncomplicated; K21.9 Gastro-esophageal reflux disease without esophagitis; F90.9 Attention-deficit hyperactivity disorder, unspecified type; F31.9 Bipolar disorder, unspecified; F17.200 Nicotine dependence, unspecified, uncomplicated; Z87.440 Personal history of urinary (tract) infections; Z90.49 Acquired absence of other specified parts of digestive tract; Z3A.31 31 weeks gestation of pregnancy
CPT/HCPCS: 36415; 80048; 81001; 85025; 96360; 99284

== ENCOUNTER 2021-02-02 14:13 | Inpatient (IN) | payer OTHER ==
[2021-02-02] MEDS ORDERED: METHYLERGONOVINE 0.2 MG/ML 1 ML AMP IM PRN (16:47)
[2021-02-02] MEDS ORDERED: OXYTOCIN 10 UNIT/ML 1 ML VIAL IM PRN (16:47)
[2021-02-02] MEDS ORDERED: LIDOCAINE 0.5% (PF) 5 MG/ML (50 ML SDV) SQ PRN (16:47)
[2021-02-02] MEDS ORDERED: CARBOPROST TROMETHAMINE 250 MCG/ML 1 ML AMP IM PRN (16:47)
[2021-02-02] MEDS ORDERED: TERBUTALINE 1 MG/ML VIAL SQ PRN (16:47)
[2021-02-02 16:57] LABS: Basophils % (A) 0 %; Eosinophils % (A) 0 %; HCT 41.9 % (34.0-46.0); HGB 14.3 gm/dL (11.4-16.0); Lymphocytes # (A) 2.4 k/uL (1.0-4.8); Lymphocytes % (A) 18 %; MCH 33.3 pg (25.0-35.0); MCHC 34.1 g/dL (31.0-37.0); MCV 97.4 fL (80.0-100.0); Mean Platelet Volume 8.8; Monocytes # (A) 0.3 k/uL (0-1.0); Monocytes % (A) 2 %; Neutrophils # (A) 10.6 k/uL (1.3-7.7); Neutrophils % (A) 79 %; Platelet Count 285 k/uL (150-450); RDW 12.1 % (11.5-15.5); WBC 13.5 k/uL (4.0-11.0)
[2021-02-02] MEDS ORDERED: BUTORPHANOL 1 MG/ML 1 ML VIAL IV PRN (17:11)
--- NOTE | 2021-02-02 17:17 | P.HPOB ---
History of Present Illness H&P Date: 02/02/21 Chief Complaint: 39-5/7 weeks, labor the patient is a 20-year-old 1 para 0 admitted at 39-5/7 weeks as status by last menstrual period and confirmed by 8 week ultrasound. She is admitted in early active labor with all signs reassuring. She made cervical change from 2 cm upon admission to triage to 4 cm at which time the decision was made to admit her. She has a history of seizures in 2019 but has had no medication and no further seizures since that time and has been followed by neurology. She additionally carries a history of bipolar disorder for which she has not been on medication during the and has remained stable. On labor and delivery, heart tones category 1. Group B strep status is negative. Obstetrical history: 1 para 0 with current statistics listed in history present illness. EDC of 02/04/2021 was established by last menstrual period and confirmed by an 8 week ultrasound. Laboratory workup demonstrates a blood type of B+ with a negative antibody screen. Rubella status is immune. The remainder of the laboratory workup is within normal limits. Early Glucola was normal as a second trimester Glucola. Group B strep status is negative. Gynecologic history: Unremarkable with no history of any infections to include STDs. Review of Systems review of systems is confined to history of present illness. Past Medical History Past Medical History: Asthma, GERD/Reflux, Pneumonia, Seizure Disorder Additional Past Medical History / Comment(s): "malformation of the skull", RSV, pneumonia as toddler. , Migraines, frequent UTI's, hx of seizure x1 (08/05/19), History of Any Multi-Drug Resistant Organisms: None Reported Past Surgical History: Appendectomy, Orthopedic Surgery Additional Past Surgical History / Comment(s): left foot surgery Past Anesthesia/Blood Transfusion Reactions: No Reported Reaction Smoking Status: Former smoker - Past Family History Mother Family Medical History: No Reported History Medications and Allergies Home Medications Medication Instructions Recorded Confirmed Type Pnv,Calcium 72/Iron/Folic Acid 1 tab PO HS 06/09/20 02/02/21 History [ Plus Tablet] Allergies Allergy/AdvReac Type Severity Reaction Status Date / Time No Known Allergies Allergy Verified 02/02/21 14:23 Exam Vital Signs Temp Pulse Resp BP 02/02/21 16:53 98.3 F 83 16 132/94 Intake and Output 02/02/21 02/02/21 02/02/21 06:59 14:59 22:59 Other: Weight 104.326 kg 104.326 kg in general, this is a well-developed, well-nourished white female in no acute distress though she is uncomfortable in early labor. Her heart has a regular rhythm and rate without murmur. Her lungs are clear to auscultation bilaterally in all villarreal. Her abdomen is gravid, nondistended, has normal active bowel sounds, soft, nontender, and without any palpable masses aside from the uterine fundus. Her extremities are without any cyanosis, clubbing, or significant edema and are nontender to palpation bilaterally. Digital cervical examination performed by the nursing staff demonstrates her cervix to be 4 cm dilated, 80% effaced with the vertex in presentation at -2 station. Results Result Diagrams: 02/02/21 16:53 Abnormal Lab Results - Last 24 Hours (Table) 02/02/21 Range/Units 16:53 WBC 13.5 H (4.0-11.0) k/uL Neutrophils # 10.6 H (1.3-7.7) k/uL Assessment and Plan (1) Active labor at term Current Visit: Yes Status: Acute Code(s): MHE9333 - SNOMED Code(s): 71899490 Plan: the patient is admitted for active management of labor. She will have close maternal and surveillance and expectant management will be practiced. She is a good candidate for IV or epidural analgesia, whichever she may choose. Anesthesia is on its way to place an epidural at this time. She will undergo artificial rupture of membranes shortly.
[2021-02-02] MEDS: LACTATED RINGERS 1,000 ML IV SCH ×3 (17:20→20:20)
[2021-02-02] MEDS ORDERED: ROPIVACAINE 100 MG, fentaNYL (PF). 200 MCG in SODIUM CHLORIDE 0.9% 76 ML EPIDURAL ONE (20:24)
[2021-02-02] MEDS ORDERED: OXYTOCIN 30 UNITS/500 ML NS 30 UNIT in SALINE 1 500ML.BAG IV SCH (20:30)
[2021-02-03] MEDS ORDERED: ZOLPIDEM 5 MG TAB PO PRN (01:22)
[2021-02-03] MEDS ORDERED: BENZOCAINE/MENTHOL SPRAY 1 GM/SPRAY AEROSOL TOPICAL PRN (01:22)
[2021-02-03] MEDS ORDERED: diphenhydrAMINE 25 MG CAP PO PRN (01:22)
[2021-02-03] MEDS ORDERED: SIMETHICONE 80 MG CHEWABLE PO PRN (01:22)
[2021-02-03] MEDS ORDERED: diphenhydrAMINE 50 MG CAP PO PRN (01:22)
[2021-02-03] MEDS ORDERED: LANOLIN CREAM 5 GM TUBE TOPICAL PRN (01:22)
[2021-02-03] MEDS ORDERED: HYDROCORTISONE 2.5% RECTAL CREAM 30 GM TUBE RECTAL PRN (01:22)
[2021-02-03] MEDS ORDERED: diphenhydrAMINE 50 MG/ML 1 ML VIAL IVP PRN ×2 (01:22)
--- NOTE | 2021-02-03 01:27 | P.PROBDLV ---
Vaginal Delivery Note - . Vaginal Delivery Note: This is a 20-year-old 1 para 0 at 39-5/7 weeks that presented to labor and delivery in active labor. Patient was deemed to be 4+ centimeters upon admission. Patient was admitted to labor and delivery and quickly requested epidural placement. Epidural was placed without difficulty by the anesthesia department. Patient underwent amniotomy and meconium-stained fluid was appreciated. Patient was noted to have a regular contractions after epidural placement therefore Pitocin augmentation of labor was begun. Patient made slow progress to complete with a strong urge to push. Patient was placed in a modified lithotomy position and with excellent maternal effort the was brought down to a crown, with additional maternal effort the anterior/posterior shoulder was delivered without difficulty. Thick meconium staining was noted on the umbilical cord and . A loose body cord was noted at delivery and delivered through. A spontaneous cry was appreciated. The umbilical cord was doubly clamped and cut and the infant was handed to awaiting RN. The placenta was then delivered spontaneously intact with a three- vessel cord being noted. Meconium staining of the placenta was appreciated as well. Inspection the patient's vaginal vault a first-degree vaginal laceration was appreciated. In addition bilateral labial lacerations were appreciated. These areas were instilled with lidocaine and repaired in the usual fashion with 3-0 repeat, 4-0 chromic. Uterus is noted be firm and below the umbilicus. All counts were noted to be correct 2 at the delivery. The bladder was drained for approximately 100 mL of clear yellow urine. Patient and tolerated delivery well and are resting comfortably.
[2021-02-03] MEDS ORDERED: OXYTOCIN 30 UNITS/500 ML NS 30 UNIT in SALINE 1 500ML.BAG IV SCH (01:30)
[2021-02-03] MEDS: LACTATED RINGERS 1,000 ML IV SCH (04:08)
[2021-02-03] MEDS: IBUPROFEN 600 MG TAB PO SCH ×3 (04:08→19:39)
[2021-02-03] MEDS: SENNOSIDES-DOCUSATE SODIUM 1 EACH TAB PO SCH ×2 (08:18→19:39)
[2021-02-03] MEDS: SENNA LEAF EXTRACT SYRUP 528 MG/15 ML CUP PO SCH (22:01)
[2021-02-04] MEDS: SENNOSIDES-DOCUSATE SODIUM 1 EACH TAB PO SCH ×2 (08:16→20:35)
[2021-02-04] MEDS: IBUPROFEN 600 MG TAB PO SCH ×5 (08:16→20:35)
[2021-02-04] MEDS: IBUPROFEN ORAL SUSP 100 MG/5 ML CUP PO SCH ×3 (08:27→08:29)
[2021-02-04] MEDS: SENNA LEAF EXTRACT SYRUP 528 MG/15 ML CUP PO SCH ×2 (08:28→08:29)
[2021-02-04] MEDS: LACTATED RINGERS 1,000 ML IV SCH ×3 (08:29→08:30)
--- NOTE | 2021-02-04 08:53 | P.DS ---
Providers Date of admission: 02/02/21 16:35 Expected date of discharge: 02/04/21 Attending physician: Dewayne Duron Primary care physician: Stated None - Discharge Diagnosis(es) (1) Active labor at term Current Visit: Yes Status: Acute (2) Normal spontaneous vaginal delivery Current Visit: Yes Status: Acute Hospital Course: the patient is a 20-year-old 1 para 0 admitted at 39-5/7 weeks by good dating parameters she is admitted in early active labor with all signs reassuring. Her has been essentially uncomplicated and group B strep status is negative. On labor and delivery, all signs reassuring with a category 1 heart rate tracing. She had an epidural catheter placed for analgesia and underwent artificial rupture of membranes demonstrating moderate to thick meconium-stained fluid. She progressed through the active phase of labor to complete and pushed to a normal spontaneous vaginal delivery of a viable 7 lbs. 3 oz. baby boy with Apgars of 8 at 1 minute and 9 at 5 minutes. Her course was unremarkable vital signs remaining stable and her temperature was afebrile throughout. She was deemed stable for discharge on day #1 was discharged home to follow-up in the office in 6 weeks' time routinely. Discharge instructions included calling for any significantly increased bleeding or foul-smelling lochia, significantly increased fever abdominal pain, perineal complaints, breast complaints, or anything else that concerned her. She was additionally instructed to have nothing in the vagina for at least 6 weeks time to include intercourse. She understood her instructions and agrees follow up as noted above. Discharge medications included a continued vitamins as she has opted to breast-feed. She was otherwise to use [id number] analgesic pain medications as needed. Maternal blood type is B+ and rubella status is immune. Procedures: #1. Epidural analgesia #2. Artificial rupture of membranes #3. Normal spontaneous vaginal delivery #4. Repair of perineal laceration Patient Condition at Discharge: Stable Plan - Discharge Summary New Discharge Prescriptions: No Action Pnv,Calcium 72/Iron/Folic Acid [ Plus Tablet] 1 tab PO HS Discharge Medication List Pnv,Calcium 72/Iron/Folic Acid [ Plus Tablet] 1 tab PO HS 06/09/20 [History] Follow up Appointment(s)/Referral(s): Dewayne Duron MD [STAFF PHYSICIAN] - 6 Weeks Discharge Disposition: HOME SELF-CARE
[2021-02-04 11:14] VITALS: RESP 16
[2021-02-05] MEDS: IBUPROFEN 600 MG TAB PO SCH (05:44)
[2021-02-05] MEDS: SENNA LEAF EXTRACT SYRUP 528 MG/15 ML CUP PO SCH (05:46)
[2021-02-05] MEDS: IBUPROFEN ORAL SUSP 100 MG/5 ML CUP PO SCH (05:46)
[2021-02-05 09:10] VITALS: BP 129/78; PULSE 80; TEMP 98.4
--- NOTE | 2021-02-05 11:11 | P.PNOBGVD ---
Subjective - Subjective Patient reports: Reports appetite normal, Reports voiding normally, Reports pain well controlled, Reports ambulating normally : doing well Objective - Latest Vital Signs Latest vital signs: Vital Signs Temp Pulse Resp BP Pulse Ox 02/05/21 08:00 98.4 F 80 16 129/78 02/05/21 00:00 97.9 F 83 16 127/91 02/04/21 16:00 98.4 F 65 16 140/84 98 02/04/21 11:13 84 16 130/84 - Exam Extremities: Present: normal Abdomen: Present: normal appearance, soft Uterus: Present: normal, firm Assessment and Plan (1) Active labor at term Current Visit: Yes Status: Acute Code(s): IIN1208 - SNOMED Code(s): 77325634 (2) Normal spontaneous vaginal delivery Current Visit: Yes Status: Acute Code(s): O80 - ENCOUNTER FOR FULL-TERM UNCOMPLICATED DELIVERY SNOMED Code(s): 34028505 Plan: discharge had been delayed yesterday secondary to a moderate increase in jaundice requiring bili lights. As a result, the patient remained in the hospital overnight and will be discharged home tomorrow. The discharge summary and instructions are otherwise as previously dictated.
== END 2021-02-05 12:30 | disposition home or self-care (01) | DRG 806 ==
LOC: FBPOP 14:13 → 4FBP 16:35
PROVIDERS: ADMIT Obstetrics & Gynecology; ATTEND Obstetrics & Gynecology
PROC: 10E0XZZ Delivery of Products of Conception, External Approach (ICD-10-PCS; principal; 2021-02-03)
PROC: 0HQ9XZZ Repair Perineum Skin, External Approach (ICD-10-PCS; 2021-02-03)
DX: O70.0 First degree perineal laceration during delivery (principal); O99.354 Diseases of the nervous system complicating childbirth; Z37.0 Single live birth; F31.9 Bipolar disorder, unspecified; G40.909 Epilepsy, unspecified, not intractable, without status epilepticus; J45.909 Unspecified asthma, uncomplicated; O77.0 Labor and delivery complicated by meconium in amniotic fluid; O99.344 Other mental disorders complicating childbirth; O99.52 Diseases of the respiratory system complicating childbirth; Z3A.39 39 weeks gestation of pregnancy; Z87.440 Personal history of urinary (tract) infections; Z87.891 Personal history of nicotine dependence
CPT/HCPCS: 59025; 85025; 86850; 86900; 86901; 88307; 96360; 99213

== ENCOUNTER 2021-07-10 11:55 | Emergency (ER) | payer OTHER ==
[2021-07-10 12:38] VITALS: BP 109/63; PULSE 62; RESP 18; TEMP 98.1
--- NOTE | 2021-07-10 14:26 | ED ---
ENT HPI - General Chief complaint: Dental/Oral Stated complaint: Mouth pain Time Seen by Provider: 07/10/21 12:55 Source: patient Mode of arrival: ambulatory Limitations: no limitations - History of Present Illness Initial comments: Patient is a 20-year-old female presenting with chief complaint of salivary stone. Patient states that she has had a stone stuck in her salivary duct for months now. She previously was treated for an ear infection due to the impacted stone. Patient was instructed to follow-up with ENT and received treatment with antibiotics. Patient states that she has not followed up with ENT. She has been utilizing sour candy and lemon wedges to try to draw the stone but has been unsuccessful. Patient states that it is bothering her and she is worried about a repeat infection. She denies any dysphagia, shortness of breath, fever, chills, headache, neck pain or stiffness, vision or hearing changes, chest pain, drooling, voice changes, nausea, vomiting, abdominal pain. - Related Data Home Medications Medication Instructions Recorded Confirmed Pnv,Calcium 72/Iron/Folic Acid 1 tab PO HS 06/09/20 02/02/21 [ Plus Tablet] Allergies Allergy/AdvReac Type Severity Reaction Status Date / Time No Known Allergies Allergy Verified 02/02/21 14:23 Review of Systems ROS Statement: Those systems with pertinent positive or pertinent negative responses have been documented in the HPI. ROS Other: All systems not noted in ROS Statement are negative. Past Medical History Past Medical History: Asthma, GERD/Reflux, Pneumonia, Seizure Disorder Additional Past Medical History / Comment(s): "malformation of the skull", RSV, pneumonia as toddler. , Migraines, frequent UTI's, hx of seizure x1 (08/05/19), History of Any Multi-Drug Resistant Organisms: None Reported Past Surgical History: Appendectomy, Orthopedic Surgery Additional Past Surgical History / Comment(s): left foot surgery Past Anesthesia/Blood Transfusion Reactions: No Reported Reaction Past Psychological History: ADD/ADHD, Bipolar, Depression Smoking Status: Former smoker Past Alcohol Use History: None Reported Past Drug Use History: Marijuana - Past Family History Mother Family Medical History: No Reported History General Exam Limitations: no limitations General appearance: alert, in no apparent distress Head exam: Present: atraumatic, normocephalic, normal inspection Eye exam: Present: normal appearance, EOMI. Absent: scleral icterus ENT exam: Present: mucous membranes moist, other (Sublingual salivary stone is noted) Expanded Mouth exam: Present: normal external inspection, tongue normal. Absent: drooling, trismus, muffled voice Neck exam: Present: normal inspection. Absent: tenderness, meningismus Respiratory exam: Present: normal lung sounds bilaterally. Absent: respiratory distress, wheezes, rales, rhonchi, stridor Cardiovascular Exam: Present: regular rate, normal rhythm, normal heart sounds. Absent: systolic murmur, diastolic murmur, rubs, gallop, clicks Neurological exam: Present: alert, oriented X3, CN II-XII intact Psychiatric exam: Present: normal affect, normal mood Skin exam: Present: warm, dry, intact, normal color. Absent: rash Course Vital Signs 07/10/21 12:35 Temperature 98.1 F Pulse Rate 62 Respiratory 18 Rate Blood Pressure 109/63 O2 Sat by Pulse 99 Oximetry Medical Decision Making - Medical Decision Making Patient is a 20-year-old female presenting with chief complaint I fell or stone. Patient states she has had it for several months, she was treated for previous cellulitis with antibiotic and referred for ENT follow-up. Patient has not followed up yet. On examination there is a sublingual salivary stone noted, no swelling, difficulty handling secretions, trismus, swelling of the neck, dysphasia, wheezing or stridor. I attempted to massage the stone out but was unsuccessful. I advised the patient to utilize sour candy and lemon wedges to drop the stone and follow up with ENT as this may require surgical intervention. Discussed return parameters and alarm symptoms. Report back to ER if any worsening symptoms. Patient conveyed verbal understanding of the plan. I discussed this case with my attending Dr. Green Disposition Clinical Impression: Salivary stone Disposition: HOME SELF-CARE Condition: Good Instructions (If sedation given, give patient instructions): Sialoadenitis (ED) Additional Instructions: Follow up with ENT. Utilize sour candy, lemon wedges to help draw the salivary stone out. Report back to ER if any worsening symptoms. Follow-up with PCP on Monday. Is patient prescribed a controlled substance at d/c from ED?: No Referrals: None,Stated [Primary Care Provider] - 1-2 days Ziyad Hodgson DO [Doctor of Osteopathic Medicine] - 1-2 days Time of Disposition: 14:25
== END 2021-07-10 14:39 | disposition home or self-care (01) ==
LOC: EC 11:55
DX: K11.5 Sialolithiasis (principal); H66.90 Otitis media, unspecified, unspecified ear; J45.909 Unspecified asthma, uncomplicated; Z87.891 Personal history of nicotine dependence
CPT/HCPCS: 99283

== ENCOUNTER 2022-08-09 05:20 | Emergency (ER) | payer OTHER ==
[2022-08-09] MEDS ORDERED: SODIUM CHLORIDE 0.9% 1,000 ML IV STA (05:40)
[2022-08-09 05:44] LABS: Glucose,Whole Blood 160 mg/dL (70-110)
[2022-08-09 06:20] LABS: Basophils % (A) 0 %; Eosinophils # (A) 0.2 k/uL (0-0.7); Eosinophils % (A) 1 %; HCT 49.6 % (34.0-46.0); HGB 16.2 gm/dL (11.4-16.0); Lymphocytes # (A) 2.8 k/uL (1.0-4.8); Lymphocytes % (A) 20 %; MCH 33.1 pg (25.0-35.0); MCHC 32.7 g/dL (31.0-37.0); Monocytes # (A) 0.3 k/uL (0-1.0); Monocytes % (A) 2 %; Neutrophils # (A) 10.9 k/uL (1.3-7.7); Neutrophils % (A) 76 %; Platelet Count 253 k/uL (150-450); RBC 4.91 m/uL (3.80-5.40); RDW 12.2 % (11.5-15.5); WBC 14.3 k/uL (3.8-10.6)
[2022-08-09 06:32] LABS: African American GFR (CKD) >90 (>60 ml/min/1.73 sqM); Albumin 4.1 g/dL (3.5-5.0); Anion Gap 25 mmol/L; Blood Urea Nitrogen 14 mg/dL (7-17); Calcium 8.6 mg/dL (8.4-10.2); Chloride 106 mmol/L (98-107); Glucose 160 mg/dL (74-99); Potassium 3.8 mmol/L (3.5-5.1); Total Bilirubin 0.4 mg/dL (0.2-1.3); Total Protein 6.6 g/dL (6.3-8.2)
[2022-08-09 06:52] LABS: AST 24 U/L (14-36); Alkaline Phosphatase 54 U/L (38-126); Non-African American GFR(CKD) 85 (>60 ml/min/1.73 sqM); Sodium 137 mmol/L (137-145)
[2022-08-09 06:56] LABS: ALT 33 U/L (4-34)
[2022-08-09] MEDS ORDERED: levETIRAcetam 500 MG TAB PO STA (06:56)
[2022-08-09 06:57] LABS: Carbon Dioxide 6 mmol/L (22-30)
[2022-08-09 07:18] LABS: Appearance,Urine Clear (Clear); Bilirubin,Urine Negative (Negative); Blood,Urine Small (Negative); Color,Urine Light Yellow; Glucose,Urine (UA) Negative (Negative); Ketones,Urine 1+ (Negative); Leukocyte Esterase,Urine Negative (Negative); Mucus,Urine Rare /hpf; Nitrite,Urine Negative (Negative); Protein,Urine 1+ (Negative); RBC,Urine 1 /hpf (0-5); Specific Gravity,Urine 1.015 (1.001-1.035); Uric Acid Crystals,Urine Rare /hpf; Urobilinogen,Urine <2.0 mg/dL (<2.0); WBC,Urine 1 /hpf (0-5)
--- NOTE | 2022-08-09 07:29 | ED ---
Seizure HPI - General Chief Complaint: Seizure Stated Complaint: SEIZURE Time Seen by Provider: 08/09/22 05:30 Source: patient, family, EMS Mode of arrival: EMS Limitations: no limitations - History of Present Illness Initial Comments: 21-year-old female with past history of seizure disorder who presents emergency Department with breakthrough seizure. Significant other is at bedside and provides the history. States that the patient had a seizure at home likely due to the fact that she ran out of her Keppra and has not taken it in the past 48 hours. He reports that she had a few Seizures and Then One Full Tonic-Clonic Seizure. No Trauma Sustained. EMS Was Called and When They Were Loading the Patient the Patient Had a Seizure Witnessed by Them. She Was Given 5 Mg of Versed IM. Patient Arrives Post Ictal. Denies Head Trauma. No Concern for . No Urinary Complaints. Follows with Dr. Hager. No other Alleviating, Precipitating or Modifying Factors - Related Data Home Medications Medication Instructions Recorded Confirmed Etonogestrel/Ethinyl Estradiol 1 vag ring VAGINAL Q28D 08/12/22 08/12/22 [Eluryng Vaginal Ring] FLUoxetine HCL [PROzac] 20 mg PO DAILY 08/12/22 08/12/22 Ferrous Sulfate [Feosol] 325 mg PO DAILY 08/12/22 08/12/22 Montelukast [Singulair] 10 mg PO DAILY PRN 08/12/22 08/12/22 Previous Rx's Medication Instructions Recorded levETIRAcetam [Keppra] 500 mg PO Q12HR #60 tab 08/09/22 Allergies Allergy/AdvReac Type Severity Reaction Status Date / Time No Known Allergies Allergy Verified 08/12/22 12:18 Review of Systems ROS Statement: Those systems with pertinent positive or pertinent negative responses have been documented in the HPI. ROS Other: All systems not noted in ROS Statement are negative. Past Medical History Past Medical History: Asthma, GERD/Reflux, Pneumonia, Seizure Disorder Additional Past Medical History / Comment(s): "malformation of the skull", RSV, pneumonia as toddler. , Migraines, frequent UTI's, hx of seizure x1 (08/05/19), History of Any Multi-Drug Resistant Organisms: None Reported Past Surgical History: Appendectomy, Orthopedic Surgery Additional Past Surgical History / Comment(s): left foot surgery Past Anesthesia/Blood Transfusion Reactions: No Reported Reaction Past Psychological History: ADD/ADHD, Bipolar, Depression Smoking Status: Former smoker Past Alcohol Use History: None Reported Past Drug Use History: Marijuana - Past Family History Mother Family Medical History: No Reported History General Exam Limitations: altered mental status (sedated and post ictal) General appearance: alert, in no apparent distress Head exam: Present: atraumatic, normocephalic, normal inspection Eye exam: Present: normal appearance, PERRL, EOMI. Absent: scleral icterus, conjunctival injection, periorbital swelling ENT exam: Present: normal exam, mucous membranes moist Neck exam: Present: normal inspection. Absent: tenderness, meningismus, lymphadenopathy Respiratory exam: Present: normal lung sounds bilaterally. Absent: respiratory distress, wheezes, rales, rhonchi, stridor Cardiovascular Exam: Present: regular rate, normal rhythm, normal heart sounds. Absent: systolic murmur, diastolic murmur, rubs, gallop, clicks GI/Abdominal exam: Present: soft, normal bowel sounds. Absent: distended, tenderness, guarding, rebound, rigid Extremities exam: Present: normal inspection, full ROM, normal capillary refill. Absent: tenderness, pedal edema, joint swelling, calf tenderness Back exam: Present: normal inspection Neurological exam: Present: altered, CN II-XII intact Psychiatric exam: Present: normal affect, normal mood Skin exam: Present: warm, dry, intact, normal color. Absent: rash Course Vital Signs 08/09/22 08/09/22 05:26 07:30 Temperature 98.4 F Pulse Rate 89 78 Respiratory 16 18 Rate Blood Pressure 110/65 120/91 O2 Sat by Pulse 92 L 98 Oximetry Medical Decision Making - Medical Decision Making Was pt. sent in by a medical professional or institution (, PA, PIPING MANAGER, urgent care, hospital, or usp...) When possible be specific @ -No Did you speak to anyone other than the patient for history (EMS, parent, family, police, friend...)? What history was obtained from this source @ -EMS/boyfriend Did you review nursing and triage notes (agree or disagree)? Why? @ -I reviewed and agree with nursing and triage notes Were old charts reviewed (outside hosp., previous admission, EMS record, old EKG, old radiological studies, urgent care reports/EKG's, usp records)? Report findings @ -No Differential Diagnosis (chest pain, altered mental status, abdominal pain women, abdominal pain men, vaginal bleeding, weakness, fever, dyspnea, syncope, headache, dizziness, GI bleed, back pain, seizure, CVA, palpatations, mental health, musculoskeletal)? @ -breakthrough seizure, sah, brain mass, hyponatremia EKG interpreted by me (3pts min.). @ -EKG demonstrates sinus rhythm with a rate of 87. LA interval 173. QRS 81. QTC of 421. No acute ST segment elevations or depressions X-rays interpreted by me (1pt min.). @ -None done CT interpreted by me (1pt min.). @ -None done U/S interpreted by me (1pt. min.). @ -None done What testing was considered but not performed or refused? (CT, X-rays, U/S, labs)? Why? @ -None What meds were considered but not given or refused? Why? @ -None Did you discuss the management of the patient with other professionals (professionals i.e. , PA, PIPING MANAGER, lab, RT, psych nurse, high school social science teacher, animal laboratory helper, teacher, compliance review officer, manager rn case)? Give summary @ -No Was smoking cessation discussed for >3mins.? @ -No Was critical care preformed (if so, how long)? @ -no Were there social determinants of health that impacted care today? How? (Homelessness, low income, unemployed, alcoholism, drug addiction, transportation, low edu. Level, literacy, decrease access to med. care, usp, rehab)? @ -No Was there de-escalation of care discussed even if they declined (Discuss DNR or withdrawal of care, Hospice)? DNR status @ -No What co-morbidities impacted this encounter? (DM, HTN, Smoking, COPD, CAD, Cancer, CVA, ARF, Chemo, Hep., AIDS, mental health diagnosis, sleep apnea, morbid obesity)? @ -seizure disorder Was patient admitted / discharged? Hospital course, mention meds given and route, prescriptions, significant lab abnormalities, going to OR and other pertinent info. @ -Upon arrival the patient is placed into room 1. History and physical exam was performed. She is post ictal upon arrival. IV is established. Laboratory studies are conducted. Remarkable for leukocytosis of 14.3. CO2 6. HCG is negative. Patient was given Keppra 1 g. She is observed in the emergency department for 2 hours. Does return to her baseline. Patient will be discharged home at this time. I did write her for her Keppra. Instructed to take her nighttime dose tonight. Follow-up with her neurologist return for any new or worsening symptoms. Patient was agreeable was discharged in stable condition Undiagnosed new problem with uncertain prognosis? @ -No Drug Therapy requiring intensive monitoring for toxicity (Heparin, Nitro, Insulin, Cardizem)? @ -No Were any procedures done? @ -No Diagnosis/symptom? @ -acute breakthrough seizure, medication non compliance Acute, or Chronic, or Acute on Chronic? @ -acute Uncomplicated (without systemic symptoms) or Complicated (systemic symptoms)? @ -complicated Side effects of treatment? @ -sedation Exacerbation, Progression, or Severe Exacerbation? @ -No Poses a threat to life or bodily function? How? (Chest pain, USA, [place], pneumonia, PE, COPD, DKA, ARF, appy, cholecystitis, CVA, Diverticulitis, Homicidal, Suicidal, threat to staff... and all critical care pts) @ -seizure can lead to aspiration and respiratory failure - Lab Data Result diagrams: 08/09/22 05:48 08/09/22 05:48 Lab Results 08/09/22 08/09/22 08/09/22 Range/Units 05:41 05:48 05:48 WBC 14.3 H (3.8-10.6) k/uL RBC 4.91 (3.80-5.40) m/uL Hgb 16.2 H (11.4-16.0) gm/dL Hct 49.6 H (34.0-46.0) % MCV 101.0 H (80.0-100.0) fL MCH 33.1 (25.0-35.0) pg MCHC 32.7 (31.0-37.0) g/dL RDW 12.2 (11.5-15.5) % Plt Count 253 (150-450) k/uL MPV 9.0 Neutrophils % 76 % Lymphocytes % 20 % Monocytes % 2 % Eosinophils % 1 % Basophils % 0 % Neutrophils # 10.9 H (1.3-7.7) k/uL Lymphocytes # 2.8 (1.0-4.8) k/uL Monocytes # 0.3 (0-1.0) k/uL Eosinophils # 0.2 (0-0.7) k/uL Basophils # 0.0 (0-0.2) k/uL Sodium 137 (137-145) mmol/L Potassium 3.8 (3.5-5.1) mmol/L Chloride 106 (98-107) mmol/L Carbon Dioxide 6 L* (22-30) mmol/L Anion Gap 25 mmol/L BUN 14 (7-17) mg/dL Creatinine 0.96 (0.52-1.04) mg/dL Est GFR (CKD-EPI)AfAm >90 (>60 ml/min/1.73 sqM) Est GFR (CKD-EPI)NonAf 85 (>60 ml/min/1.73 sqM) Glucose 160 H (74-99) mg/dL POC Glucose (mg/dL) 160 H (70-110) mg/dL POC Glu Neuro Urologist ID Cynthia Barragan Calcium 8.6 (8.4-10.2) mg/dL Magnesium 2.0 (1.6-2.3) mg/dL Total Bilirubin 0.4 (0.2-1.3) mg/dL AST 24 (14-36) U/L ALT 33 (4-34) U/L Alkaline Phosphatase 54 (38-126) U/L Total Protein 6.6 (6.3-8.2) g/dL Albumin 4.1 (3.5-5.0) g/dL Urine Color Urine Appearance (Clear) Urine pH (5.0-8.0) Ur Specific [place] (1.001-1.035) Urine Protein (Negative) Urine Glucose (UA) (Negative) Urine Ketones (Negative) Urine Blood (Negative) Urine Nitrite (Negative) Urine Bilirubin (Negative) Urine Urobilinogen (<2.0) mg/dL Ur Leukocyte Esterase (Negative) Urine RBC (0-5) /hpf Urine WBC (0-5) /hpf Uric Acid Crystals (None) /hpf Urine Mucus (None) /hpf Urine HCG, Qual (Not Detectd) 08/09/22 08/09/22 Range/Units 07:01 07:01 WBC (3.8-10.6) k/uL RBC (3.80-5.40) m/uL Hgb (11.4-16.0) gm/dL Hct (34.0-46.0) % MCV (80.0-100.0) fL MCH (25.0-35.0) pg MCHC (31.0-37.0) g/dL RDW (11.5-15.5) % Plt Count (150-450) k/uL MPV Neutrophils % % Lymphocytes % % Monocytes % % Eosinophils % % Basophils % % Neutrophils # (1.3-7.7) k/uL Lymphocytes # (1.0-4.8) k/uL Monocytes # (0-1.0) k/uL Eosinophils # (0-0.7) k/uL Basophils # (0-0.2) k/uL Sodium (137-145) mmol/L Potassium (3.5-5.1) mmol/L Chloride (98-107) mmol/L Carbon Dioxide (22-30) mmol/L Anion Gap mmol/L BUN (7-17) mg/dL Creatinine (0.52-1.04) mg/dL Est GFR (CKD-EPI)AfAm (>60 ml/min/1.73 sqM) Est GFR (CKD-EPI)NonAf (>60 ml/min/1.73 sqM) Glucose (74-99) mg/dL POC Glucose (mg/dL) (70-110) mg/dL POC Glu Neuro Urologist ID Calcium (8.4-10.2) mg/dL Magnesium (1.6-2.3) mg/dL Total Bilirubin (0.2-1.3) mg/dL AST (14-36) U/L ALT (4-34) U/L Alkaline Phosphatase (38-126) U/L Total Protein (6.3-8.2) g/dL Albumin (3.5-5.0) g/dL Urine Color Light Yellow Urine Appearance Clear (Clear) Urine pH 5.0 (5.0-8.0) Ur Specific [place] 1.015 (1.001-1.035) Urine Protein 1+ H (Negative) Urine Glucose (UA) Negative (Negative) Urine Ketones 1+ H (Negative) Urine Blood Small H (Negative) Urine Nitrite Negative (Negative) Urine Bilirubin Negative (Negative) Urine Urobilinogen <2.0 (<2.0) mg/dL Ur Leukocyte Esterase Negative (Negative) Urine RBC 1 (0-5) /hpf Urine WBC 1 (0-5) /hpf Uric Acid Crystals Rare H (None) /hpf Urine Mucus Rare H (None) /hpf Urine HCG, Qual Not Detected (Not Detectd) Disposition Clinical Impression: Breakthrough seizure Disposition: HOME SELF-CARE Condition: Stable Instructions (If sedation given, give patient instructions): Recurrent Seizures in Adults (ED) Additional Instructions: Take your nighttime dose of Keppra tonight. Follow-up with your neurologist and return for any new or worsening symptoms Prescriptions: levETIRAcetam [Keppra] 500 mg PO Q12HR #60 tab Is patient prescribed a controlled substance at d/c from ED?: No Referrals: Nasima Stevens PAC [Primary Care Provider] - 1-2 days Irish Mike MD [REFERRING] - 1-2 days Time of Disposition: 07:29
[2022-08-09] MEDS ORDERED: ACETAMINOPHEN TAB 500 MG TAB PO STA (07:32)
[2022-08-09 07:34] VITALS: BP 120/91; PULSE 78; RESP 18; TEMP 98.4
== END 2022-08-09 07:45 | disposition home or self-care (01) ==
LOC: EC 05:20
DX: G40.909 Epilepsy, unspecified, not intractable, without status epilepticus (principal); J45.909 Unspecified asthma, uncomplicated; F31.9 Bipolar disorder, unspecified; Z79.899 Other long term (current) drug therapy; Z87.891 Personal history of nicotine dependence
CPT/HCPCS: 36415; 80053; 81001; 81025; 83735; 85025; 93005; 96360; 99285

== ENCOUNTER 2022-08-12 10:51 | Emergency (ER) | payer OTHER ==
[2022-08-12 11:11] VITALS: RESP 18; TEMP 98.1
[2022-08-12 11:58] LABS: Basophils % (A) 1 %; Eosinophils # (A) 0.1 k/uL (0-0.7); Eosinophils % (A) 2 %; HCT 46.3 % (34.0-46.0); HGB 15.5 gm/dL (11.4-16.0); Lymphocytes # (A) 1.7 k/uL (1.0-4.8); Lymphocytes % (A) 24 %; MCH 32.6 pg (25.0-35.0); MCHC 33.5 g/dL (31.0-37.0); MCV 97.2 fL (80.0-100.0); Mean Platelet Volume 8.3; Monocytes # (A) 0.2 k/uL (0-1.0); Monocytes % (A) 2 %; Neutrophils # (A) 4.9 k/uL (1.3-7.7); Neutrophils % (A) 71 %; Platelet Count 216 k/uL (150-450); RBC 4.76 m/uL (3.80-5.40)
--- NOTE | 2022-08-12 12:05 | CT ---
EXAMINATION TYPE: CT brain wo con DATE OF EXAM: 08/12/2022 COMPARISON: 07/26/2019 HISTORY: Headache, memory loss, hx of seizures. CT DLP: 1114.4 mGycm. Automated Exposure Control for Dose Reduction was Utilized. TECHNIQUE: CT scan of the head is performed without contrast. FINDINGS: There is no acute intracranial hemorrhage, mass effect, or midline shift identified. The ventricles and sulci are within normal limits in size. The globes are intact and the visualized sin uses are clear. There is low lying cerebellar tonsils. There is hyperdensity seen in the region of the pineal gland a nd this is stable dating back to 2016 likely represents calcification of pineal gland. IMPRESSION: 1. No acute intracranial hemorrhage, mass effect, or midline shift is seen. There are low-lying cereb ellar tonsils suggestive of Chiari I malformation correlate for history chronic headaches. 2. Stable hyperdensity seen in the region May represent some degree of calcification. Recommend follow-up contrast enhanced MRI to assess for C hiari malformation and this region. It does appear stable dating back to 2011 CT scan.
[2022-08-12 12:09] LABS: Potassium 3.8 mmol/L (3.5-5.1)
[2022-08-12 12:10] LABS: ALT 25 U/L (4-34); AST 51 U/L (14-36); African American GFR (CKD) >90 (>60 ml/min/1.73 sqM); Albumin 3.9 g/dL (3.5-5.0); Alkaline Phosphatase 51 U/L (38-126); Anion Gap 8 mmol/L; Blood Urea Nitrogen 11 mg/dL (7-17); Calcium 8.9 mg/dL (8.4-10.2); Carbon Dioxide 24 mmol/L (22-30); Chloride 108 mmol/L (98-107); Glucose 75 mg/dL (74-99); Non-African American GFR(CKD) >90 (>60 ml/min/1.73 sqM); Sodium 140 mmol/L (137-145); Total Bilirubin 0.8 mg/dL (0.2-1.3); Total Protein 6.5 g/dL (6.3-8.2)
--- NOTE | 2022-08-12 12:25 | ED ---
Headache HPI - General Chief Complaint: Headache Stated Complaint: headache Time Seen by Provider: 08/12/22 11:15 Source: patient, RN notes reviewed Mode of arrival: ambulatory Limitations: no limitations - History of Present Illness Initial Comments: 21-year-old female presents emergency Department with chief complaint of headache, multiple seizures. Patient seen here a few days prior for her multiple seizures. Patient states she's been taking her Keppra she has not had a seizure since. Patient scheduled follow-up with Dr. Hager. Patient denies any focal weakness patient states she's been having more frequent headaches and she is concerned. Patient denies fevers chills no neck pain. - Related Data Home Medications Medication Instructions Recorded Confirmed Etonogestrel/Ethinyl Estradiol 1 vag ring VAGINAL Q28D 08/12/22 08/12/22 [Eluryng Vaginal Ring] FLUoxetine HCL [PROzac] 20 mg PO DAILY 08/12/22 08/12/22 Ferrous Sulfate [Feosol] 325 mg PO DAILY 08/12/22 08/12/22 Montelukast [Singulair] 10 mg PO DAILY PRN 08/12/22 08/12/22 Previous Rx's Medication Instructions Recorded levETIRAcetam [Keppra] 500 mg PO Q12HR #60 tab 08/09/22 Allergies Allergy/AdvReac Type Severity Reaction Status Date / Time No Known Allergies Allergy Verified 08/12/22 12:18 Review of Systems ROS Statement: Those systems with pertinent positive or pertinent negative responses have been documented in the HPI. ROS Other: All systems not noted in ROS Statement are negative. Past Medical History Past Medical History: Asthma, GERD/Reflux, Pneumonia, Seizure Disorder Additional Past Medical History / Comment(s): "malformation of the skull", RSV, pneumonia as toddler. , Migraines, frequent UTI's, hx of seizure x1 (08/05/19), History of Any Multi-Drug Resistant Organisms: None Reported Past Surgical History: Appendectomy, Orthopedic Surgery Additional Past Surgical History / Comment(s): left foot surgery Past Anesthesia/Blood Transfusion Reactions: No Reported Reaction Past Psychological History: ADD/ADHD, Bipolar, Depression Smoking Status: Current every day smoker Past Alcohol Use History: Occasional Past Drug Use History: Marijuana - Past Family History Mother Family Medical History: No Reported History General Exam Limitations: no limitations General appearance: alert, in no apparent distress Head exam: Present: atraumatic, normocephalic, normal inspection Eye exam: Present: normal appearance, PERRL, EOMI. Absent: scleral icterus, conjunctival injection, periorbital swelling ENT exam: Present: normal exam, normal oropharynx, mucous membranes moist Neck exam: Present: normal inspection, full ROM. Absent: tenderness, meningismus, lymphadenopathy Respiratory exam: Present: normal lung sounds bilaterally. Absent: respiratory distress, wheezes, rales, rhonchi, stridor Cardiovascular Exam: Present: regular rate, normal rhythm, normal heart sounds. Absent: systolic murmur, diastolic murmur, rubs, gallop, clicks GI/Abdominal exam: Present: soft, normal bowel sounds. Absent: distended, tenderness, guarding, rebound, rigid Neurological exam: Present: alert, oriented X3, CN II-XII intact, reflexes normal. Absent: motor sensory deficit Skin exam: Present: warm, dry, intact, normal color. Absent: rash Course Vital Signs 08/12/22 08/12/22 08/12/22 11:07 11:26 12:36 Temperature 98.1 F Pulse Rate 89 86 87 Respiratory 18 18 18 Rate Blood Pressure 119/81 118/89 121/79 O2 Sat by Pulse 100 98 100 Oximetry Medical Decision Making - Medical Decision Making Was pt. sent in by a medical professional or institution (JOHN Del Angel, DIRECTOR TELEMETRY, urgent care, hospital, or snf...) When possible be specific @ -[No] Did you speak to anyone other than the patient for history (EMS, parent, family, police, friend...)? What history was obtained from this source @ -[No] Did you review nursing and triage notes (agree or disagree)? Why? @ -[I reviewed and agree with nursing and triage notes] Were old charts reviewed (outside hosp., previous admission, EMS record, old EKG, old radiological studies, urgent care reports/EKG's, snf records)? Report findings @ -[Reviewed prior labs, notes] Differential Diagnosis (chest pain, altered mental status, abdominal pain women, abdominal pain men, vaginal bleeding, weakness, fever, dyspnea, syncope, headache, dizziness, GI bleed, back pain, seizure, CVA, palpatations, mental health, musculoskeletal)? @ -[Differential Headache: Migraine, tension, cluster, carbon monoxide, central venous thrombosis, pension karma temporal arteritis, acute closure glaucoma, intercranial hemorrhage, mastoiditis, sinusitis, head injury, this is not meant to be an all-inclusive list.able] EKG interpreted by me (3pts min.). @ -[As above] X-rays interpreted by me (1pt min.). @ -[None done] CT interpreted by me (1pt min.). @ -[CT brain shows no acute process does show similar findings of Chiari malformation] U/S interpreted by me (1pt. min.). @ -[None done] What testing was considered but not performed or refused? (CT, X-rays, U/S, labs)? Why? @ -[None] What meds were considered but not given or refused? Why? @ -[None] Did you discuss the management of the patient with other professionals (professionals i.e. , PA, DIRECTOR TELEMETRY, lab, RT, psych nurse, social and human services assistant, land examiner, teacher, safety instruction police officer, director case management)? Give summary @ -[No] Was smoking cessation discussed for >3mins.? @ -[No] Was critical care preformed (if so, how long)? @ -[No] Were there social determinants of health that impacted care today? How? (Homelessness, low income, unemployed, alcoholism, drug addiction, transportation, low edu. Level, literacy, decrease access to med. care, [facility], rehab)? @ -[No] Was there de-escalation of care discussed even if they declined (Discuss DNR or withdrawal of care, Hospice)? DNR status @ -[No] What co-morbidities impacted this encounter? (DM, HTN, Smoking, COPD, CAD, Cancer, CVA, ARF, Chemo, Hep., AIDS, mental health diagnosis, sleep apnea, morbid obesity)? @ -[Seizure] Was patient admitted / discharged? Hospital course, mention meds given and route, prescriptions, significant lab abnormalities, going to OR and other pertinent info. @ -[Discharge patient's workup was negative. Labs, CT. Patient has a follow- up with her neurologist. She is stable findings on prior CT. Patient discharged in stable condition] Undiagnosed new problem with uncertain prognosis? @ -[No] Drug Therapy requiring intensive monitoring for toxicity (Heparin, Nitro, Insulin, Cardizem)? @ -[No] Were any procedures done? @ -[No] Diagnosis/symptom? @ -[Headaches, history of seizures] Acute, or Chronic, or Acute on Chronic? @ -Acute Uncomplicated (without systemic symptoms) or Complicated (systemic symptoms)? @ -uncomplicated Side effects of treatment? @ -[No] Exacerbation, Progression, or Severe Exacerbation? @ -[No] Poses a threat to life or bodily function? How? (Chest pain, USA, [place], pneumonia, PE, COPD, DKA, ARF, appy, cholecystitis, CVA, Diverticulitis, Homicidal, Suicidal, threat to staff... and all critical care pts) @ -[No] - Lab Data Result diagrams: 08/12/22 11:40 08/12/22 11:40 Lab Results 08/12/22 08/12/22 Range/Units 11:40 11:40 WBC 7.0 (3.8-10.6) k/uL RBC 4.76 (3.80-5.40) m/uL Hgb 15.5 (11.4-16.0) gm/dL Hct 46.3 H (34.0-46.0) % MCV 97.2 (80.0-100.0) fL MCH 32.6 (25.0-35.0) pg MCHC 33.5 (31.0-37.0) g/dL RDW 12.0 (11.5-15.5) % Plt Count 216 (150-450) k/uL MPV 8.3 Neutrophils % 71 % Lymphocytes % 24 % Monocytes % 2 % Eosinophils % 2 % Basophils % 1 % Neutrophils # 4.9 (1.3-7.7) k/uL Lymphocytes # 1.7 (1.0-4.8) k/uL Monocytes # 0.2 (0-1.0) k/uL Eosinophils # 0.1 (0-0.7) k/uL Basophils # 0.0 (0-0.2) k/uL Sodium 140 (137-145) mmol/L Potassium 3.8 (3.5-5.1) mmol/L Chloride 108 H (98-107) mmol/L Carbon Dioxide 24 (22-30) mmol/L Anion Gap 8 mmol/L BUN 11 (7-17) mg/dL Creatinine 0.80 (0.52-1.04) mg/dL Est GFR (CKD-EPI)AfAm >90 (>60 ml/min/1.73 sqM) Est GFR (CKD-EPI)NonAf >90 (>60 ml/min/1.73 sqM) Glucose 75 (74-99) mg/dL Calcium 8.9 (8.4-10.2) mg/dL Total Bilirubin 0.8 (0.2-1.3) mg/dL AST 51 H (14-36) U/L ALT 25 (4-34) U/L Alkaline Phosphatase 51 (38-126) U/L Total Protein 6.5 (6.3-8.2) g/dL Albumin 3.9 (3.5-5.0) g/dL Disposition Clinical Impression: Generalized headaches, Seizures Disposition: HOME SELF-CARE Condition: Stable Instructions (If sedation given, give patient instructions): Acute Headache (E D) Additional Instructions: Please return to the Emergency Department if symptoms worsen or any other concerns. Is patient prescribed a controlled substance at d/c from ED?: No Referrals: Kyrie Salter MD [Primary Care Provider] - 1-2 days Time of Disposition: 12:25
[2022-08-12 12:38] VITALS: BP 121/79; PULSE 87
== END 2022-08-12 12:39 | disposition home or self-care (01) ==
LOC: EC 10:51
DX: G40.909 Epilepsy, unspecified, not intractable, without status epilepticus (principal); R51.9 Headache, unspecified; J45.909 Unspecified asthma, uncomplicated; F31.9 Bipolar disorder, unspecified; F17.200 Nicotine dependence, unspecified, uncomplicated; F12.90 Cannabis use, unspecified, uncomplicated; Z79.899 Other long term (current) drug therapy
CPT/HCPCS: 36415; 70450; 80053; 80177; 85025; 99284

== ENCOUNTER → 2022-10-19 | Outpatient (CLI) | payer OTHER ==
--- NOTE | 2022-10-19 11:31 | P.SLEEP ---
History of Present Illness DATE: 10/19/2022 CONSULTATION/NEW PATIENT EVALUATION HISTORY OF PRESENT ILLNESS/SLEEP-WAKE EVALUATION: 22-year-old lady had been evaluated in the sleep center for possible obstructive sleep apnea hypopnea syndrome. SLEEP SCHEDULE: Usually sleep schedule from 9-12 until 7-11 AM. FALLING ASLEEP: Patient has difficulties with the falling asleep, highest TV set and bedroom. DURING SLEEP: Patient snores and according to her has episodes of stop breathing during the sleep. Positive history of procedure this episodes during the sleep usually on the second part of the night. Positive history of sleepwalking, and sleep eating. DURING THE DAY/WAKE STATE: In the morning patient wake up tired, has difficulties to pay attention, has problems with memory, concentration, irritability and anxiety. [place] sleepiness scale is 8, which is in normal range. Patient may take 1 nap during the day. PAST MEDICAL HISTORY: Epilepsy, asthma, headaches, bipolar disorder, depression. PAST SURGICAL HISTORY: Appendectomy, left foot repair. MEDICATIONS: Topamax twice a day, Lamictal twice a day, iron supplement. SOCIAL HISTORY: Positive for smoking for about 6 years from 1 pack a day now patient down to half pack a day, alcohol consumption occasional. FAMILY HISTORY: Positive history of epilepsy. REVIEW OF SYSTEMS: Snoring, episodes of seizures including during the sleep, sleepwalking, sleep eating. No fevers. No double vision. No recent chest pain. No shortness of breath. No abdominal pain. No bleeding episodes. No blood in urine. PHYSICAL EXAMINATION: GENERAL: A pleasant patient without any distress. VITAL SIGNS: BP 117/87 , HR 78 , RR 12 , weight 171.4 pounds, height 5 foot 7 three quarters inches, body mass index 26.5 . HEENT: PERRLA, EOMI. Evaluation of oropharynx showed tongue protrudes midline, low position of soft palate Mallampati 4. NECK: Supple. No JVD. Thyroid is not palpable. 13.5 inches in circumference. LUNGS: Clear to percussion and to auscultation. Good air exchange. No wheezing or rhonchi. HEART: S1, S2 regular. No murmurs, gallops or rubs. ABDOMEN: Soft and nontender. Bowel sounds are present. No organomegaly appreciated. EXTREMITIES: No clubbing or cyanosis. MEDICAL LAB DIRECTOR: Awake, alert, and oriented x3. Cranial nerves 2 to 7 intact. There is no fasciculation or atrophy noted. No focal deficits observed. ASSESSMENT: 1. Snoring, witnessed episodes of stop breathing during the sleep, extremely low position of soft palate Mallampati 4, retrognathia 2 mm. Obstructive sleep apnea hypopnea syndrome. 2. History of sleepwalking. 3. History of sleep eating. 4. History of seizures including during the sleep. 5 asthma. 6 . Headaches. 7. Bipolar disorder. 8. History of depression. 9 . Status post appendectomy. 10. Status post foot surgery. PLAN: 1. Polysomnography for evaluation of patient's breathing during sleep and also to check for possible parasomnias. 2. CPAP/BiPAP titration if sleep study confirms obstructive sleep apnea- hypopnea syndrome. 3. Preferable position during sleep on the side. 4. No driving if patient feels any sleepiness. Patient is aware of civil and criminal liability for unsafe driving. 5. Sleep hygiene with regular sleep time for at least 7.5-8 hours. 6. Watching weight. Thank you very much for referring this patient for consultation. Sincerely, Martinez Magaña MD, PhD, FAASM. Diplomat of [place] [employer], Sleep Medicine Board by [place] [employer] [place] [employer] Catering Staff Member of [facility] [place] Past Medical History Past Medical History: Asthma, GERD/Reflux, Pneumonia, Seizure Disorder Additional Past Medical History / Comment(s): "malformation of the skull", RSV, pneumonia as toddler. , Migraines, frequent UTI's, hx of seizure x1 (08/05/19), History of Any Multi-Drug Resistant Organisms: None Reported Past Surgical History: Appendectomy, Orthopedic Surgery Additional Past Surgical History / Comment(s): left foot surgery Past Anesthesia/Blood Transfusion Reactions: No Reported Reaction Smoking Status: Current every day smoker Past Alcohol Use History: Occasional - Past Family History Mother Family Medical History: No Reported History Medications and Allergies Home Medications Medication Instructions Recorded Confirmed Type levETIRAcetam [Keppra] 500 mg PO Q12HR #60 tab 08/09/22 08/12/22 Rx Etonogestrel/Ethinyl Estradiol 1 vag ring VAGINAL Q28D 08/12/22 08/12/22 History [Eluryng Vaginal Ring] FLUoxetine HCL [PROzac] 20 mg PO DAILY 08/12/22 08/12/22 History Ferrous Sulfate [Feosol] 325 mg PO DAILY 08/12/22 08/12/22 History Montelukast [Singulair] 10 mg PO DAILY PRN 08/12/22 08/12/22 History Allergies Allergy/AdvReac Type Severity Reaction Status Date / Time No Known Allergies Allergy Verified 08/12/22 12:18 Sleep Note - Sleep Note Sleep Note: Temperature: Pulse Rate: Respiratory Rate: Blood Pressure: SpO2: Height: Weight: BMI: Neck Circumference:
== END ==
LOC: 3 N SLEEP 10:41
PROVIDERS: ATTEND Internal Medicine
DX: G47.33 Obstructive sleep apnea (adult) (pediatric) (principal); J45.909 Unspecified asthma, uncomplicated; M26.19 Other specified anomalies of jaw-cranial base relationship; F31.9 Bipolar disorder, unspecified; F17.200 Nicotine dependence, unspecified, uncomplicated; R51.9 Headache, unspecified; Z98.890 Other specified postprocedural states; Z86.69 Personal history of other diseases of the nervous system and sense organs
CPT/HCPCS: 99211

== ENCOUNTER → 2022-10-19 | Outpatient (CLI) | payer OTHER ==
--- NOTE | 2022-10-19 11:10 | MR ---
EXAMINATION TYPE: MR brain wo/w con DATE OF EXAM: 10/19/2022 COMPARISON: CT scan 08/12/2022, MRI brain 09/26/2019 HISTORY: Seizure, abnormal CT TECHNIQUE: Multiplanar, multisequence images of the brain and brainstem is performed without and with IV contras t, utilizing 7.5 mL intravenous Gadavist . FINDINGS: Diffusion weighted images demonstrate no evidence of a recent infarct or other diffusion ab normality. There is no extra-axial fluid collection or significant white matter signal abnormality. The ventricular system and cisternal spaces are normal in size and appearance. The brain volume is age appropriate. Low-lying cerebellar tonsils measuring approximately 4 mm below foramen magnum. Correlate for history of chronic headaches. Hyperdensity seen in the pineal gland on CT scan is too small to characterize but stable. Could represent early calcification of the pineal gland. Recommend short-term follow-up. Post contrast images demonstrate no abnormal enhancement. The dural venous sinuses appear patent. The visualized sinuses are clear and the globes are intact. There is a asymmetric prominence of the righ t portion of the pituitary gland but no abnormal enhancement. Could be physiologic. IMPRESSION: 1. 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 2. Prominent pituitary gland without evidence of abnormal enhancement. 3. Hyperdensity seen by recent CT scan demonstrates no abnormal area of enhancement. 3 mm area of nod ularity is too small to characterize. May represent early calcification of pineal gland and is retros pectively seen dating back to the CT scan of 01/18/2016 and therefore likely benign
== END | disposition home or self-care (01) ==
LOC: RADMRIMAIN 09:34
PROVIDERS: ATTEND Pediatrics
DX: G93.89 Other specified disorders of brain (principal); R90.89 Other abnormal findings on diagnostic imaging of central nervous system
CPT/HCPCS: 70553; A9585

== ENCOUNTER 2022-11-30 19:34 | Outpatient (CLI) | payer OTHER | END 2022-12-01 06:10 | disposition home or self-care (01) | LOC: 3 N SLEEP 19:34 | PROVIDERS: ATTEND Internal Medicine | DX: G47.33 Obstructive sleep apnea (adult) (pediatric) (principal); F17.200 Nicotine dependence, unspecified, uncomplicated; G40.911 Epilepsy, unspecified, intractable, with status epilepticus | CPT/HCPCS: 95810 ==

== ENCOUNTER → 2022-12-15 | Outpatient (CLI) | payer OTHER ==
--- NOTE | 2022-12-16 13:14 | MR ---
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 Congenital malformation of nervous system/Chiari. COMPARISON: MRI brain 10/19/2022 TECHNIQUE: Multi planar, multi sequence imaging was performed utilizing: T1-weighted, T2-weighted, a nd turbo inversion recovery imaging of the cervical and lumbar spine. MR contrast: IV Contrast: None. FINDINGS: CERVICAL: Alignment: The cervical vertebral bodies have preserved heights. Alignment is within normal limits gi davide patient positioning. Bones: Bone signal is within normal limits. No abnormal bone marrow edema on inversion recovery seque nces. Cord: The spinal cord is unremarkable with regards to their signal intensity and morphology. Discs: Intervertebral disc signal is maintained. C2-C3: No significant disc pathology. The spinal canal is patent. No neural foraminal stenosis. C3-C4: No significant disc pathology. The spinal canal is patent. No neural foraminal stenosis. C4-C5: No significant disc pathology. The spinal canal is patent. No neural foraminal stenosis. C5-C6: No significant disc pathology. The spinal canal is patent. No neural foraminal stenosis. C6-C7: No significant disc pathology. The spinal canal is patent. No neural foraminal stenosis. C7-T1: No significant disc pathology. The spinal canal is patent. No neural foraminal stenosis. Other: The cerebellar tonsils extend below the foramen magnum approximately 3 mm. THORACIC: No evidence significant spinal canal or neural foraminal stenosis. Spinal cord is within no rmal limits LUMBAR: Alignment: The lumbar vertebral bodies have preserved heights and alignment. Cord: The conus medullaris and the distal spinal cord appear unremarkable with regards to their signa l intensity and morphology. Bones/Discs: Bone signal is within normal limits. Multilevel degenerative disc disease is noted and most pronounced at the L5-S1. T12-L1: No evidence of significant spinal canal stenosis or neural foraminal stenosis. L1-L2: No evidence of significant spinal canal stenosis or neural foraminal stenosis. L2-L3: No evidence of significant spinal canal stenosis or neural foraminal stenosis. L3-L4: No evidence of significant spinal canal stenosis or neural foraminal stenosis. L4-L5: No evidence of significant spinal canal stenosis or neural foraminal stenosis. L5-S1: The disc is rounded posterior morphology without significant spinal canal stenosis. Facet join t arthropathy with mild neural foraminal stenosis. Other findings: None. IMPRESSION: 1. Minimal cerebellar tonsillar ectopia. No additional finding to suggest Chiari malformation. 2. No definitive evidence of disc herniation or significant spinal canal stenosis. 3. No significant disc degeneration or evidence for significant spinal canal or neural foraminal sabino nosis. No abnormal bony edema. 4. Spinal cord signal is maintained.
== END | disposition home or self-care (01) ==
LOC: RADMRIMAIN 15:29
PROVIDERS: ATTEND Neurological Surgery
DX: Q07.9 Congenital malformation of nervous system, unspecified (principal)
CPT/HCPCS: 72141; 72146; 72148

== ENCOUNTER → 2023-02-16 | Outpatient (CLI) | payer OTHER ==
--- NOTE | 2023-02-17 21:45 | US ---
EXAMINATION TYPE: US pelvic complete DATE OF EXAM: 02/16/2023 COMPARISON: NONE CLINICAL INDICATION: Female, 22 years old with history of M79.9 sft tissue mass R10.2 PELVIC PERINEAL PAIN; Post intercourse and while urinating; TECHNIQUE: Transabdominal sonographic images of the pelvis were acquired. Transvaginal sonographic images were medically necessary to better assess the following anatomy: Ovaries Date of LMP: 2 weeks ago EXAM MEASUREMENTS: Uterus: 8.8 x 3.9 x 6.7 cm Endometrial Stripe: 0.8 cm Right Ovary: 4.3 x 2.0 x 3.9 cm Left Ovary: 4.0 x 2.0 x 3.4 cm 1. Uterus: Anteverted wnl 2. Endometrium: wnl 3. Right Ovary: wnl 4. Left Ovary: Complex cyst = 2.2 x 2.2 x 2.0 cm 5. Bilateral Adnexa: Fluid left adnexa 6. Posterior cul-de-sac: Fluid IMPRESSION: 1. Complex left ovarian cyst which could represent hemorrhagic cyst. Follow-up in 6-8 weeks is recom mended. 2. No evidence for acute pelvic process. 3. Endometrium is within normal limits for thickness.
--- NOTE | 2023-02-17 21:53 | US ---
EXAMINATION TYPE: US mass soft tissue chest/back DATE OF EXAM: 02/16/2023 COMPARISON: NONE CLINICAL INDICATION: Female, 22 years old with history of M79.9 sft tissue mass Right posterior shoul hannah x years TECHNIQUE: Grayscale imaging of the posterior neck in the area of concern in the right. FINDINGS: Echogenic area with posterior shadowing = 0.6 x 0.4 x 0.5 cm no suspicious fluid collectio ns. IMPRESSION: Echogenic area with posterior acoustic shadowing to represent calcification: For benign c alcified granuloma.
== END | disposition home or self-care (01) ==
LOC: RADUSWWP 12:55
PROVIDERS: ATTEND Pediatrics
DX: N83.292 Other ovarian cyst, left side (principal); R10.2 Pelvic and perineal pain; M79.9 Soft tissue disorder, unspecified
CPT/HCPCS: 76830; 76856